=== PATIENT | male | born 1940 | race Caucasian/White ===

== ENCOUNTER 2017-06-23 01:05 | Inpatient (IN) | payer OTHER ==
[~2017-06-23] VITALS: Ht 170.2 cm; Wt 73.0 kg
[~2017-06-23 01:05] MED LIST: BREO ELLIPTA 21 EACH IH; CITALOPRAM HBR20 MG PO; DALIRESP500 MC1 PO; MONTELUKAST SOD10 M1 PO; ST. JOSEPH ASPI81 M1 PO; Z-PAK PO
--- NOTE | 2017-06-23 16:08 | Admission Core Measures ---
Acute Coronary Syndrome (CM) ACS Core Measures Acute Coronary Syndrome Diagnosis No Congestive Heart Failure (NEW) CHF Core Measures Congestive Heart Failure Diagnosis No Cerebrovascular Accident (NEW) CVA Core Measures CVA/TIA Diagnosis No Venous Thromboembolism VTE Core Jed (View Protocol) VTE Risk Factors Surgery No Mechanical VTE Prophylaxis d/t N/A MechProphylax Ordered No VTE Pharm Prophylaxis d/t NA PharmProphylax ordered Problem List As ranked by this Provider includes Assessment & Plan 1. Cancer of transverse colon 2. Colon adenomas HOME MEDS Home Med List Aspirin (Johnson Aspirin) 81 MG TABLET.DR 1 TAB PO DAILY HEARTHEALTH ( Reported) Citalopram Hydrobromide (Citalopram HBr) 20 MG TABLET 1 TAB PO DAILY DEPRESSION (Reported) Fluticasone/Vilanterol (Breo Ellipta 200-25 Mcg INH) 200 MCG-25 MCG/DOSE BLST.W.DEV 1 INH IH DAILY COPD (Reported) Montelukast Sodium 10 MG TABLET 1 TAB PO DAILY ALLERGIES (Reported) Roflumilast (Daliresp) 500 MCG TABLET 1 TAB PO DAILY COPD (Reported) [Z-SANDRA] 250 MG PO DAILY NASAL STUFFINESS (Reported)
--- NOTE | 2017-06-23 16:46 | Operative Report ---
Operative/Inv Procedure Report Surgery Date: 06/23/17 Name of Procedure: 1. Laparoscopic subtotal colectomy with ileo-to sigmoid colon anastomosis 2. Laparoscopic splenic flexure mobilization Pre-Operative Diagnosis: 1. Malignant polyp proximal transverse colon 2. Malignant polyp distal transverse colon 3. Polyposis syndrome undefined Post-Operative Diagnosis: Same Estimated Blood Loss: less than 50ml Surgeon/Research And Development Tester: Eric Pete Jr., DO Anesthesia: general endotracheal tube, block Monitors: Per routine Drains: None Specimens: 1. Umbilical hernia sac 2. Subtotal colon 3. Revised ileocolonic anastomosis Complications: None Condition: Good Operative Indication: This is a 77-year-old gentleman who has an extensive history of colon adenomas, with multiple lesions on multiple previous colonoscopies During his most recent colonoscopy 11 adenomas in total were removed including one at the proximal transverse colon and one at the distal transverse colon with at least intramucosal adenocarcinoma Additionally there was a polyp in the proximal descending colon with high-grade dysplasia. The patient was referred to ms for surgical consultation. 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 Operative/Procedure Note Note: On the day before his surgery the patient did a towel prep at home including oral antibiotics and oral laxatives. On the morning of his surgery he drinks 12 ounces of apple juice prior to coming to the hospital. In the holding area the patient was given oral alvimopan. He received IV antibiotics prior to induction of general anesthesia. He received subcutaneous heparin prior to incision He was taken to the operating room placed in the supine position on the operating room table. He underwent induction of general anesthesia placement of endotracheal tube and Han catheter. He had bilateral tap blocks performed by the anesthesia department. Next he was converted to lithotomy position in Fredrick stirrups and both arms were tucked. The abdomen and perineum were prepped and draped in usual fashion. We gained access to the abdominal cavity using a Fang technique. Fang port was placed in the supraumbilical position through a small no hernia. The abdomen was insufflated to 15 mmHg and all the 5 mm ports were placed under direct visualization of the laparoscope. Ports included: Right upper quadrant, right lower quadrant, left lower quadrant, left upper quadrant and suprapubic. At this point laparoscopic exploration of the abdominal cavity was performed. The liver appeared normal and no evidence of pathology was visible. I began the operation by resecting the right colon. The colon was grasped and elevated towards the anterior abdominal wall. This causes tenting the mesentery and the ileocolic vessels were visible. A window was made along the inferior edge of the ileocolic vessels blunt dissection was carried out and the duodenum was identified and mobilized medially. The ileocolic pedicle was skeletonized and then the vessels were individually ligated with the LigaSure device. I continued my medial to lateral dissection freeing the nasal colon from the retroperitoneal doctors until I reached the lateral sidewall and also the lesser sac superiorly. I divided the proximal transverse colon mesentery with the vessel sealer including the right colic and middle colic vessels. The colon was pulled medially and the white line of Toldt was taken down turning of the cecum and working antegrade. I took down the hepatic flexure and part of the gastrocolic ligament next a transverse colon was pulled down. Made a window in the gastrocolic ligament and divided the gastrocolic ligament starting to the left of midline and working retrograde until almost planes of dissection were confluent. Next I changed sided focus on the left colon. I continued to divide the gastrocolic ligament working antegrade and completely took down the splenic flexure. I continued to divide the transverse colon mesentery until I reached the descending colon and the left colic artery was identified and ligated with vessel sealer. I took down the white line of Toldt starting at the distal sigmoid and working retrograde until once again all my planes of dissection were confluent. At this point I felt I could extract enough specimen to do a extracorporal terminal ileum to sigmoid colon anastomosis. The 12 mm umbilical port was extended to 5 centimeters. I was able to easily extract the terminal ileum and the entire colon to the level of the sigmoid colon. I chose my proximal site of transection on the terminal ileum. The mesentery was divided here with the vessel sealer. A HYUN 80 mm blue load stapler was used to divide the bowel. I chose my distal site of transection on the upper sigmoid colon. Mesentery was cleared here with a vessel sealer. HYUN 80 mm stapler blue load was used to divide the bowel. The specimen was removed from the field and labeled subtotal colon. The 2 transected ends of the bowel were aligned in a [id number] HYUN anastomosis was performed. As I was reducing the bowel back into the abdominal cavity realized that there was no twisting of the mesentery and an internal hernia had formed so I decided to revise the anastomosis. I cleared the mesentery on both the terminal ileal side of the anastomosis and the colon side of the anastomosis. The HYUN stapler was used to divide the bowel on either side of the anastomosis and the anastomosis was sent as separate specimen. Once again I carefully checked the mesentery to make sure there was no twisting. I aligned the 2 sides of the bowel. 2 enterotomies were intentionally created in each side of the bowel. A HYUN stapler was used for the anastomosis. One arm of the stapling device was placed on each limb of the bowel. The stapler was closed making sure to approximate the antimesenteric portions of the bowel. The stapler was fired. The stapler was opened and removed. I inspected the lumen which was found and not bleeding. The common enterotomy edges were then approximated with Allis clamps. A TA 60 blue load stapler was used to close the enterotomy and a ring of excess tissue was excised. The anastomosis was reduced back into the abdominal cavity. The fascia at the midline incision was closed with running 0 PDS suture. The abdomen was reinsufflated to 15 mmHg inspected the abdominal cavity. There was no twisting of the mesentery. There was no internal hernia. A small amount of old residual blood was irrigated and aspirated away from either of the lateral gutters. The 5 mm ports were all removed under direct visualization of the bladder scope. The subcutaneous tissue at the midline incision was copiously irrigated with sterile saline and then closed with nylon suture in a mattress fashion. The 5 mm ports were closed subcuticular 4-0 Monocryl and then skin glue. The abdomen was cleansed and dried. A small island dressing was applied over the extraction incision. At this point the procedure was concluded. The patient was exiting operating room tolerated the procedure well was taken to recovery in good condition. At the end this operational needle sponges and Schmidts were accounted for. Findings: Subtotal colectomy with ileosigmoid colon anastomosis Discharge Disposition: Same Day Admissions CC: Ashley Hernandez MD
[2017-06-23 18:02] VITALS: BP 130/68
--- NOTE | 2017-06-23 20:20 | PN- General Surgery ---
Subjective Subjective: POSTOP CHECK denies abdominal pain, does have some lower back discomfort. no n/v. shruthi sips water. no flatus, no bm. no cp/sob. +uo via griffin. no oob postop Objective Vital Signs and I&Os Vital Signs Date Time Temp Pulse Resp B/P B/P Pulse O2 O2 Flow FiO2 Mean Ox Delivery Rate 06/23 1802 96.8 85 20 130/68 98 Nasal 4.0L Cannula 06/23 1737 97 Nasal 4.0L Cannula Physical Exam: gen-nad card-s1s2 rrr pulm-ctab abd- softly distended, ttp throughout, port sites cdi w glue, midline w scant serosang staining on dressing, quiet bs ext-calves soft nt bl Assessment/Plan Assessment/Plan POD0 SP lap subtotal colectomy for colon ca, stable, with minimal postop pain, awaiting return of bowel fxn P- prn pain meds clear liquid diet entereg until BM cont ivf until shruthi clrs alps, oob, hep sq tomorrow am labs titrate o2 ancef/flagyl [id number] postop i&os dc planning Core Measures Venous Thromboembolism VTE Risk Factors Surgery No Mechanical VTE Prophylaxis d/t N/A MechProphylax Ordered No VTE Pharm Prophylaxis d/t NA PharmProphylax ordered
[2017-06-23 22:37] VITALS: BP 140/80
[2017-06-24 02:00] VITALS: BP 124/74
[2017-06-24 06:11] VITALS: BP 130/78
--- NOTE | 2017-06-24 08:23 | PN- General Surgery ---
See Addendum Subjective Subjective: comfortable. tolerating clears. no flatus, no bm. pain is controlled, needed morphine this am. no fever or illness, in good spirits. Objective Vital Signs and I&Os Vital Signs Date Time Temp Pulse Resp B/P B/P Pulse O2 O2 Flow FiO2 Mean Ox Delivery Rate 06/24 0611 97.9 68 20 130/78 96 Room Air 06/24 0200 97.7 59 20 124/74 98 Nasal 1.0L Cannula 06/24 0000 100 Nasal 1.0L Cannula 06/23 2237 97.9 78 20 140/80 100 06/23 2047 Nasal 2.0L Cannula 06/23 1802 96.8 85 20 130/68 98 Nasal 4.0L Cannula 06/23 1737 97 Nasal 4.0L Cannula Intake & Output 06/24 1600 06/24 0800 06/24 0000 06/23 1600 06/23 0800 06/23 0000 Intake Total 1010 420 Output Total 800 400 Balance 210 20 Intake, IV 650 300 Intake, Oral 360 120 Output, Urine 800 400 Patient 162 lb Weight Weight Reported by Patient Measurement Method Physical Exam: wdwn, aox3, nad heent-wnl heart-rrr lungs- no resp distress, cta b. abd- minimal incisional tenderness and epigastric tenderness. scant dry drainage on dressing. faint hypoactive bs. Results Last 48 Hours of Labs: Laboratory Tests 06/24 0725 Chemistry Sodium Pending Potassium Pending Chloride Pending Carbon Dioxide Pending Anion Gap Pending BUN Pending Creatinine Pending BUN/Creatinine Ratio Pending Hematology CBC w Diff Pending WBC Pending RBC Pending Hgb Pending Hct Pending MCV Pending MCH Pending RDW Pending Plt Count Pending MPV Pending PUBS MCHC Pending Assessment/Plan Assessment/Plan POD1 SP lap subtotal colectomy for colon ca, stable, awaiting return of bowel fxn P- prn pain meds cont clear liquid diet entereg until BM dc ivf alps, hep sq for dvt ppx OOB transition to po pain meds follow am labs perioperative abx i&os Core Measures Venous Thromboembolism VTE Risk Factors Surgery No Mechanical VTE Prophylaxis d/t N/A MechProphylax Ordered No VTE Pharm Prophylaxis d/t NA PharmProphylax ordered
[2017-06-24 08:34] LABS: ABSOLUTE BASOPHIL COUNT 0 /CUMM (0.0-0.2); ABSOLUTE EOSINOPHIL COUNT 0 /CUMM (0.0-0.7); ABSOLUTE GRANULOCYTE CT 15.6 /CUMM (1.4-6.5); ABSOLUTE LYMPH COUNT 0.7 /CUMM (1.2-3.4); ABSOLUTE MONOCYTE COUNT 1.2 /CUMM (0.10-0.60); BASOPHIL % 0 % (0.0-2.0); EOSINOPHIL % 0 % (0-5); HEMATOCRIT 34.3 % (42-52); MEAN CORPUSCULAR HGB 28.6 PG (27.0-31.0); MEAN CORPUSCULAR HGB CONC 33.4 G/DL (33.0-37.0); MEAN CORPUSCULAR VOLUME 85.7 FL (80.0-94.0); MEAN PLATELET VOLUME 7.6 FL (7.4-10.4); PLATELET COUNT 275 /CUMM (130-400); RED BLOOD CELL CT 4.01 /CUMM (4.70-6.10); WHITE BLOOD CELL COUNT 17.5 /CUMM (4.8-10.8)
[2017-06-24 09:11] LABS: GRANULOCYTE % 89.1 % (42.2-75.2)
[2017-06-24 14:26] VITALS: BP 130/80
[2017-06-24 22:34] VITALS: BP 142/80
[2017-06-25 06:21] VITALS: BP 120/70
--- NOTE | 2017-06-25 07:22 | PN- General Surgery ---
See Addendum Subjective Subjective: pod#2 s/p lap assist ileo sigmoid subtotal colectomy no major issues overnight denies cp, sob started clears yesterday, c/o nausea and belching this am states he had two soft bm's yesterday Objective Vital Signs and I&Os Vital Signs Date Time Temp Pulse Resp B/P B/P Pulse O2 O2 Flow FiO2 Mean Ox Delivery Rate 06/25 0621 98.3 92 20 120/70 92 Room Air 06/24 2234 98.5 86 18 142/80 94 Room Air 06/24 1426 98.0 70 18 130/80 97 Room Air 06/24 1200 95 Room Air 06/24 0800 Room Air Intake & Output 06/25 0800 06/25 0000 06/24 1600 06/24 0800 06/24 0000 06/23 1600 Intake Total 727 561 2583 420 Output Total 600 200 800 400 Balance 0 650 210 20 Intake, IV 250 650 300 Intake, Oral 600 600 360 120 Number 2 Bowel Movements Output, Urine 600 200 800 400 Patient 162 lb Weight Weight Reported by Patient Measurement Method Physical Exam: cv: rrr lungs: clear abd: softly distended, +bs, midline wound c/d/i with sutures - drsg changed port sites c/d/i minimal tenderness to palp no [id number] of peritonitis ext: warm, no calf tenderness bilat, distal cms intact Assessment/Plan Assessment/Plan surgical stable plan f/u am labs d/c entereg cont oob ambulate hep sq/alps for dvt prophylaxis cont clrs for now advance diet per attending Core Measures Venous Thromboembolism VTE Risk Factors Surgery No Mechanical VTE Prophylaxis d/t N/A MechProphylax Ordered No VTE Pharm Prophylaxis d/t NA PharmProphylax ordered
[2017-06-25 08:51] LABS: ABSOLUTE BASOPHIL COUNT 0 /CUMM (0.0-0.2); ABSOLUTE EOSINOPHIL COUNT 0 /CUMM (0.0-0.7); ABSOLUTE GRANULOCYTE CT 18.5 /CUMM (1.4-6.5); ABSOLUTE LYMPH COUNT 1.1 /CUMM (1.2-3.4); ABSOLUTE MONOCYTE COUNT 1.3 /CUMM (0.10-0.60); BASOPHIL % 0.1 % (0.0-2.0); EOSINOPHIL % 0 % (0-5); MEAN CORPUSCULAR VOLUME 84.8 FL (80.0-94.0); MEAN PLATELET VOLUME 7.7 FL (7.4-10.4); RBC DISTRIBUTION WIDTH 15.6 % (11.5-14.5); RED BLOOD CELL CT 4.76 /CUMM (4.70-6.10); WHITE BLOOD CELL COUNT 20.9 /CUMM (4.8-10.8)
[2017-06-25 09:22] LABS: HEMATOCRIT 40.4 % (42-52)
[2017-06-25 10:12] LABS: GRANULOCYTE % 88.4 % (42.2-75.2); PLATELET COUNT 395 /CUMM (130-400)
[2017-06-25 10:18] VITALS: BP 122/34
[2017-06-25 15:25] VITALS: BP 118/56; BP 122/90
--- NOTE | 2017-06-25 17:25 | RADIOLOGY REPORT ---
EXAMINATION: ABDOMEN 2 VIEWS CLINICAL INFORMATION: Nausea and vomiting following bowel surgery. COMPARISON: None. TECHNIQUE: Supine and upright views of the abdomen are provided. FINDINGS: Multiple dilated loops of small bowel are present throughout the abdomen. There is no appendicolith. There is wedge-shaped retrocardiac airspace disease. There is medial hip joint space narrowing bilaterally and moderate degenerative change within the lumbar spine. Subcutaneous gas is present within the lateral left abdominal wall. IMPRESSION: Multiple dilated loops of small bowel throughout the abdomen. This is nonspecific, but could correspond to ileus or a distal small bowel obstruction. There is subcutaneous gas present throughout the abdomen consistent with the stated history of recent surgery. Wedge-shaped retrocardiac airspace disease. Consider atelectasis or developing infiltrate. Recommendation is for a followup chest series to be obtained following treatment and/or resolution of symptoms to assure resolution of this appearance.
[2017-06-25 23:02] VITALS: BP 166/90
[2017-06-26 01:54] VITALS: BP 138/80
[2017-06-26 06:20] VITALS: BP 144/86
--- NOTE | 2017-06-26 07:13 | PN- General Surgery ---
See Addendum Subjective Subjective: Overall he is feeling better. Feels as though his abdominal distention is less. He had another bowel movement this morning. Had small amount of emesis overnight, denies any nausea at this time, he is comfortable. Positive flatus Objective Vital Signs and I&Os Vital Signs Date Time Temp Pulse Resp B/P B/P Pulse O2 O2 Flow FiO2 Mean Ox Delivery Rate 06/26 0620 98.1 81 20 144/86 94 Room Air 06/26 0154 98.4 90 18 138/80 93 Room Air 06/26 0000 93 Room Air 06/25 2302 98.6 95 20 166/90 93 Room Air 06/25 1525 98.1 85 18 122/90 95 06/25 1018 97.8 97 18 122/34 95 Room Air Intake & Output 06/26 0800 06/26 0000 06/25 1600 06/25 0800 06/25 0000 06/24 1600 Intake Total 875 625 200 100 600 850 Output Total 600 200 Balance 875 625 200 100 0 650 Intake, IV 875 625 0 250 Intake, Oral 200 100 600 600 Number 0 2 Bowel Movements Output, Urine 600 200 Physical Exam: Well-developed well-nourished no apparent distress. HEENT: Atraumatic, extraocular motion intact Neck: Supple, no lymphadenopathy Respiratory: No respiratory distress Abdomen: Minimally distended and tender in the epigastric and mid abdominal region. Dressing sites clean dry and intact. Positive bowel sounds Extremities: No edema, no calf pain Neuro: Alert and oriented x3 Psych: Mood affect normal, normal memory normal judgment. Skin: Warm and dry, no rash on exposed skin Results Last 48 Hours of Labs: Laboratory Tests 06/25 06/24 0747 0725 Chemistry Sodium (137 - 145 mmol/L) 141 Potassium (3.5 - 5.1 mmol/L) 4.0 Chloride (98 - 107 mmol/L) 106 Carbon Dioxide (22 - 30 mmol/L) 22 Anion Gap (5 - 16) 13 BUN (9 - 20 mg/dL) 14 Creatinine (0.7 - 1.2 mg/dL) 0.9 Estimated GFR (>60 ml/min) > 60 BUN/Creatinine Ratio (7 - 25 %) 15.6 Hematology CBC w Diff NO MAN DIFF REQ NO MAN DIFF REQ WBC (4.8 - 10.8 /CUMM) 20.9 H 17.5 H RBC (4.70 - 6.10 /CUMM) 4.76 4.01 L Hgb (14.0 - 18.0 G/DL) 13.3 L 11.5 L Hct (42 - 52 %) 40.4 L 34.3 L MCV (80.0 - 94.0 FL) 84.8 85.7 MCH (27.0 - 31.0 PG) 28.0 28.6 RDW (11.5 - 14.5 %) 15.6 H 15.0 H Plt Count (130 - 400 /CUMM) 395 275 MPV (7.4 - 10.4 FL) 7.7 7.6 Gran % (42.2 - 75.2 %) 88.4 H 89.1 H Lymphocytes % (20.5 - 51.1 %) 5.2 L 3.9 L Monocytes % (1.7 - 9.3 %) 6.3 7.0 Eosinophils % (0 - 5 %) 0 0 Basophils % (0.0 - 2.0 %) 0.1 0 Absolute Granulocytes (1.4 - 6.5 /CUMM) 18.5 H 15.6 H Absolute Lymphocytes (1.2 - 3.4 /CUMM) 1.1 L 0.7 L Absolute Monocytes (0.10 - 0.60 /CUMM) 1.3 H 1.2 H Absolute Eosinophils (0.0 - 0.7 /CUMM) 0 0 Absolute Basophils (0.0 - 0.2 /CUMM) 0 0 PUBS MCHC (33.0 - 37.0 G/DL) 33.0 33.4 Assessment/Plan Assessment/Plan Postop day #3 status post laparoscopic subtotal colectomy secondary to colon cancer Continue nothing by mouth, possible restart clears later today, will discuss with Eric Pete, DO Continue to monitor bowel function and signs of nausea and vomiting Follow-up am labs, trending white blood cell count Continue IV fluids Continue heparin subcutaneous for DVT prophylaxis oob/ambulate Core Measures Venous Thromboembolism VTE Risk Factors Surgery No Mechanical VTE Prophylaxis d/t N/A MechProphylax Ordered No VTE Pharm Prophylaxis d/t NA PharmProphylax ordered
[2017-06-26 09:23] LABS: ABSOLUTE BASOPHIL COUNT 0 /CUMM (0.0-0.2); ABSOLUTE EOSINOPHIL COUNT 0 /CUMM (0.0-0.7); ABSOLUTE GRANULOCYTE CT 13.5 /CUMM (1.4-6.5); ABSOLUTE LYMPH COUNT 0.9 /CUMM (1.2-3.4); ABSOLUTE MONOCYTE COUNT 1.3 /CUMM (0.10-0.60); BASOPHIL % 0 % (0.0-2.0); EOSINOPHIL % 0.2 % (0-5); MEAN CORPUSCULAR HGB 28.2 PG (27.0-31.0); MEAN CORPUSCULAR HGB CONC 33.3 G/DL (33.0-37.0); MEAN CORPUSCULAR VOLUME 84.6 FL (80.0-94.0); MEAN PLATELET VOLUME 7.7 FL (7.4-10.4); RBC DISTRIBUTION WIDTH 15.4 % (11.5-14.5); RED BLOOD CELL CT 4.04 /CUMM (4.70-6.10); WHITE BLOOD CELL COUNT 15.8 /CUMM (4.8-10.8)
[2017-06-26 10:18] LABS: HEMATOCRIT 34.2 % (42-52)
[2017-06-26 10:19] LABS: GRANULOCYTE % 85.5 % (42.2-75.2); PLATELET COUNT 326 /CUMM (130-400)
[2017-06-26 12:00] VITALS: BP 136/80
[2017-06-26 13:57] VITALS: BP 162/64
[2017-06-26 21:00] VITALS: BP 140/80
[2017-06-27 02:00] VITALS: BP 148/86
[2017-06-27 06:15] VITALS: BP 144/86
--- NOTE | 2017-06-27 07:10 | PN- General Surgery ---
See Addendum Subjective Subjective: Tolerating clears, with some ongoing underlying nausea. No vomiting. Moving stool several times in the last day. Unsure of flatus. Reports significant scrotal bruising / swelling, but voiding without difficulty. Walking "not much", but willing to get up more with rolling walker today. Denies dizziness. No shortness of breath. No chest pains. Taking iv morphine and tylenol for pain control. Objective Vital Signs and I&Os Vital Signs Date Time Temp Pulse Resp B/P B/P Pulse O2 O2 Flow FiO2 Mean Ox Delivery Rate 06/27 0615 98.1 77 20 144/86 95 Room Air 06/27 0200 98.1 63 18 148/86 93 Room Air 06/26 2100 140/80 06/26 1955 98.7 73 20 96 Room Air 06/26 1357 97.7 73 18 162/64 97 Room Air 06/26 1200 98.8 70 14 136/80 95 Intake & Output 06/27 0800 06/27 0000 06/26 1600 06/26 0800 06/26 0000 06/25 1600 Intake Total 1330 1000 875 625 200 Output Total Balance 1330 1000 875 625 200 Intake, IV 850 1000 875 625 Intake, Oral 480 200 Patient 161 lb Weight Physical Exam: General - alert & oriented x 3. comfortable. out of bed to chair. no acute distress. Lungs - clear bilaterally. no w/r/r. Cardiac - s1s2. reg. Abdomen - softly distended. few bs appreciated. dry gauze dressing removed / dry. midline incision approximated with sutures, without erythema or exudates. - scrotum with diffuse echymosis Extremities - warm bilaterally. no c/c/e. calves soft and nontender b/l. Current Medications: Current Medications Sig/Mery Start time Last Medication Dose Route Stop Time Status Admin Acetaminophen 650 MG Q4P PRN 06/24 0830 AC 06/25 PO 0620 Acetaminophen 1,000 MG Q6P PRN 06/23 1815 AC 06/26 IV 1612 Citalopram 20 MG DAILY 06/24 1000 AC 06/26 Hydrobromide PO 0809 Dextrose/Sodium 1,000 ML Q8H 06/25 1815 AC 06/27 Chloride IV 0212 Heparin Sodium 5,000 UNIT Q8 06/24 1400 AC 06/27 (Porcine) SC 0551 Montelukast Sodium 10 MG DAILY 06/24 1000 AC 06/26 PO 0809 Morphine Sulfate 4 MG Q2P PRN 06/23 1815 AC 06/26 IV 1727 Ondansetron HCl 4 MG Q6P PRN 06/23 181 AC 06/25 IV 0736 Oxycodone/ 1 TAB Q4P PRN 06/24 0830 AC 06/27 Acetaminophen PO 0212 Oxycodone/ 2 TAB Q4P PRN 06/24 0830 AC 06/24 Acetaminophen PO 1551 Roflumilast 500 MCG DAILY 06/24 1000 AC 06/26 PO 0809 Simethicone 80 MG Q6P PRN 06/26 2014 AC 06/26 PO 203 Trazodone HCl 100 MG AT BEDTIME NEED.. 06/23 2229 AC 06/23 PO 2333 Results Last 48 Hours of Labs: Laboratory Tests 06/26 06/25 0800 0747 Chemistry Sodium (137 - 145 mmol/L) 144 Potassium (3.5 - 5.1 mmol/L) 3.9 Chloride (98 - 107 mmol/L) 108 H Carbon Dioxide (22 - 30 mmol/L) 26 Anion Gap (5 - 16) 10 BUN (9 - 20 mg/dL) 23 H Creatinine (0.7 - 1.2 mg/dL) 0.9 Estimated GFR (>60 ml/min) > 60 BUN/Creatinine Ratio (7 - 25 %) 25.6 H Phosphorus (2.5 - 4.5 mg/dL) 2.0 L Magnesium (1.6 - 2.3 mg/dL) 1.9 Hematology CBC w Diff NO MAN DIFF REQ NO MAN DIFF REQ WBC (4.8 - 10.8 /CUMM) 15.8 H 20.9 H RBC (4.70 - 6.10 /CUMM) 4.04 L 4.76 Hgb (14.0 - 18.0 G/DL) 11.4 L 13.3 L Hct (42 - 52 %) 34.2 L 40.4 L MCV (80.0 - 94.0 FL) 84.6 84.8 MCH (27.0 - 31.0 PG) 28.2 28.0 RDW (11.5 - 14.5 %) 15.4 H 15.6 H Plt Count (130 - 400 /CUMM) 326 395 MPV (7.4 - 10.4 FL) 7.7 7.7 Gran % (42.2 - 75.2 %) 85.5 H 88.4 H Lymphocytes % (20.5 - 51.1 %) 5.8 L 5.2 L Monocytes % (1.7 - 9.3 %) 8.5 6.3 Eosinophils % (0 - 5 %) 0.2 0 Basophils % (0.0 - 2.0 %) 0 0.1 Absolute Granulocytes (1.4 - 6.5 /CUMM) 13.5 H 18.5 H Absolute Lymphocytes (1.2 - 3.4 /CUMM) 0.9 L 1.1 L Absolute Monocytes (0.10 - 0.60 /CUMM) 1.3 H 1.3 H Absolute Eosinophils (0.0 - 0.7 /CUMM) 0 0 Absolute Basophils (0.0 - 0.2 /CUMM) 0 0 PUBS MCHC (33.0 - 37.0 G/DL) 33.3 33.0 Assessment/Plan Assessment/Plan This 77 year old male with hx copd, depression, seasonal allergies, is POD#4 s/p laparoscopic subtotal colectomy secondary to colon cancer, post-op ileus tolerating clears. decrease iv fluids may consider adding toradol. continue morphine / tylenol prn pain oob/ambulation encouraged hep sc - dvt ppx f/u labs will d/w Core Measures Venous Thromboembolism VTE Risk Factors Surgery No Mechanical VTE Prophylaxis d/t N/A MechProphylax Ordered No VTE Pharm Prophylaxis d/t NA PharmProphylax ordered
[2017-06-27 08:42] LABS: ABSOLUTE BASOPHIL COUNT 0 /CUMM (0.0-0.2); ABSOLUTE EOSINOPHIL COUNT 0.3 /CUMM (0.0-0.7); ABSOLUTE GRANULOCYTE CT 10.5 /CUMM (1.4-6.5); ABSOLUTE MONOCYTE COUNT 1.1 /CUMM (0.10-0.60); BASOPHIL % 0.1 % (0.0-2.0); GRANULOCYTE % 81.8 % (42.2-75.2); HEMATOCRIT 31.9 % (42-52); MEAN CORPUSCULAR HGB 28.4 PG (27.0-31.0); MEAN CORPUSCULAR HGB CONC 33.4 G/DL (33.0-37.0); MEAN PLATELET VOLUME 7.9 FL (7.4-10.4); PLATELET COUNT 279 /CUMM (130-400); RBC DISTRIBUTION WIDTH 15.5 % (11.5-14.5); RED BLOOD CELL CT 3.76 /CUMM (4.70-6.10); WHITE BLOOD CELL COUNT 12.9 /CUMM (4.8-10.8)
[2017-06-27 14:00] VITALS: BP 158/60
--- NOTE | 2017-06-27 14:41 | Surgical Discharge Summary ---
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 Home Who Do You Live With? Spouse Services at Home: None What is Your Primary Language? Syriac Review of Systems: see h&p Hospital Course Course Attending Physician: Eric Pete Jr., DO Primary Care Physician: Israel CLEMENT,[place] [facility] Hospital Course: Electively scheduled laparoscopic subtotal colectomy with ileo-to sigmoid colon anastomosis and splenic flexure mobilization by on 06/23/17 for history of malignant polyp proximal transverse colon, malignant polyp distal transverse colon, and polyposis syndrome undefined. Entereg given post-operatively until bowel function started to return. Pain control transitioned from iv to oral medication. Mild post-op ileus, which resolved after a few days, and diet advancement was done as tolerated. Mild post-operative electrolyte abnormalities , including hypokalemia and hypophosphatemia, repleted with iv replacements. Stable for discharge to home on 06/28/17 once tolerating low residue diet. Complications: None Allergies: Coded Allergies: No Known Allergies (06/20/17) NO KNOWN ALLERGIES PER ANDREW IN [facility] ON 06/20/17 - [facility] Disposition Summary Disposition Principal Diagnosis: 1. Malignant polyp proximal transverse colon 2. Malignant polyp distal transverse colon 3. Polyposis syndrome undefined Additional Diagnosis: same as above, s/p Surgery Date: 06/23/17 Name of Procedure: 1. Laparoscopic subtotal colectomy with ileo-to sigmoid colon anastomosis 2. Laparoscopic splenic flexure mobilization post-op ileus Discharge Disposition: home or self care Discharge Instructions General Discharge Information Code Status: Full Code Patient's Diet: low residue diet Patient's Activity: no heavy lifting >10 lbs, no strenuous activity Follow-Up Instructions/Appts: follow up with one week after discharge will need sutures removed from midline incision around post-op day#14 Medications at Discharge Discharge Medications: Stop taking the following medications: [Z-SANDRA] ORAL DAILY Continue taking these medications: Aspirin ([place] Aspirin) 81 MG TABLET.DR 1 Tablet ORAL DAILY Roflumilast (Daliresp) 500 MCG TABLET 1 Tablet ORAL DAILY Fluticasone/Vilanterol (Breo Ellipta 200-25 Mcg INH) 200 MCG-25 MCG/DOSE BLST.W.DEV 1 Inhalation INHALATION DAILY Montelukast Sodium (Montelukast Sodium) 10 MG TABLET 1 Tablet ORAL DAILY Citalopram Hydrobromide (Citalopram HBr) 20 MG TABLET 1 Tablet ORAL DAILY Start taking the following new medications: Oxycodone HCl/Acetaminophen (Percocet 5-325 MG Tablet) 5 MG-325 MG TABLET 1-2 Tablet ORAL EVERY 4-6 HOURS NEEDED as needed for pain control Qty = 36 No Refills Instructions: tylenol alternatively. do not combine. Copies To: Israel CLEMENT,[place]
--- NOTE | 2017-06-27 14:44 | Patient Discharge Instructions ---
Discharge Instructions General Discharge Information You were seen/treated for: 1. Malignant polyp proximal transverse colon 2. Malignant polyp distal transverse colon 3. Polyposis syndrome undefined You had these procedures: Surgery Date: 06/23/17 Name of Procedure: 1. Laparoscopic subtotal colectomy with ileo-to sigmoid colon anastomosis 2. Laparoscopic splenic flexure mobilization Watch for these problems: fever>101.3, increased pain, redness/swelling/drainage, dizziness, shortness of breath, chest pains Call Surgeon to remove: Stitches No bath, but you may shower: Yes Other wound care: sutures to be removed at follow up appointment, around post-op day #14 Diet Continue normal diet: No Recommended Diet: Regular Activity Full Activity/No Limits: No Activity Self Limited: Yes Pounds, do NOT lift more than: 10 Other activity limits: no heavy lifting. no strenuous activity. Acute Coronary Syndrome Inclusion Criteria At DC or during hospital stay patient has or had the following: ACS DIAGNOSIS No Discharge Core Measures Meds if any: Prescribed or Continued at Discharge Meds if any: NOT Prescribed or Continued at Discharge Congestive Heart Failure Inclusion Criteria At DC or during hospital stay patient has or had the following: CHF DIAGNOSIS No Discharge Core Measures Meds if any: Prescribed or Continued at Discharge Meds if any: NOT Prescribed or Continued at Discharge Cerebrovascular accident Inclusion Criteria At DC or during hospital stay patient has or had the following: CVA/TIA Diagnosis No Discharge Core Measures Meds if any: Prescribed or Continued at Discharge Meds if any: NOT Prescribed or Continued at Discharge Venous thromboembolism Inclusion Criteria VTE Diagnosis No VTE Type NONE VTE Confirmed by (Test) NONE Discharge Core Measures - Per Current guidelines, there needs to be overlap - treatment for the first 5 days of Warfarin therapy. - If discharged on Warfarin prior to 5 days of - overlap therapy, the patient will need to be - assessed for post discharge needs including - *Post discharge parental anticoagulation - *Warfarin and/or parental anticoagulation education - *Follow up date to check INR post discharge At least 5 days overlap therapy as Inpatient No Meds if any: Prescribed or Continued at Discharge Note: Overlap Therapy is Warfarin and Anticoagulant Meds if any: NOT Prescribed or Continued at Discharge
[2017-06-27] MEDS ORDERED: PERCOCET 5-3251 EACH PO (14:45)
[2017-06-27 22:21] VITALS: BP 132/88
[2017-06-28 04:24] VITALS: BP 170/82
[2017-06-28 08:27] LABS: ABSOLUTE BASOPHIL COUNT 0 /CUMM (0.0-0.2); ABSOLUTE EOSINOPHIL COUNT 0.3 /CUMM (0.0-0.7); ABSOLUTE GRANULOCYTE CT 9.7 /CUMM (1.4-6.5); ABSOLUTE LYMPH COUNT 0.8 /CUMM (1.2-3.4); ABSOLUTE MONOCYTE COUNT 0.9 /CUMM (0.10-0.60); BASOPHIL % 0.3 % (0.0-2.0); EOSINOPHIL % 2.3 % (0-5); HEMATOCRIT 31.5 % (42-52); MEAN CORPUSCULAR HGB 28.1 PG (27.0-31.0); MEAN CORPUSCULAR HGB CONC 33.6 G/DL (33.0-37.0); MEAN CORPUSCULAR VOLUME 83.8 FL (80.0-94.0); MEAN PLATELET VOLUME 7.8 FL (7.4-10.4); PLATELET COUNT 293 /CUMM (130-400); RBC DISTRIBUTION WIDTH 15.3 % (11.5-14.5); RED BLOOD CELL CT 3.76 /CUMM (4.70-6.10); WHITE BLOOD CELL COUNT 11.7 /CUMM (4.8-10.8)
[2017-06-28 09:29] LABS: GRANULOCYTE % 83.1 % (42.2-75.2)
--- NOTE | 2017-06-28 10:38 | PN- Student ---
See Addendum [facility] 06/28/17 1029: Subjective Subjective: Mukesh is a 77yo caucasain male with a history of colon cancer, post op day 5 s/ p laparoscopic subtotal colectomy. Patient states he has mild discomfort at his incision site, but it is tolerable. Pt had mild case of ileus which seems to have resolved and admits to passing flatus and having regular BMs. Pt is complaining of continued scrotal swelling since the procedure. He states his scrotum is slightly enlarged but is non painful. He has not experienced this in the past. Yesterday his scrotum was elevated on folded towels and he states it did not change the amount of swelling. He does not seem to be very concerned about this issue. Patient would like to be discharged Friday06/30/17. Denies: H/A, vision changes, SOB, chest pain, N/V/D, dysuria/hematuria, muscle pain, paresthesias or syncope. Objective Objective: GENERAL: PT sitting upright comfortably in bed in NAD. A+Ox4, pleasant affect. RESP: Good respiratory effort, CTAB. CARDIO: RRR, no MRG, S1 and S2 audidble ABD: Soft, nondistended. Slightly tender with palpation. Vertical incision closed with loree noted at midline- mild bruising surrounds the incision site, but there are no signs of irritation or infection. : Scrotum is soft, slightly enlarged (but not distended). Non erythematous, nonpainful to palpation, no masses palpated. Testes are of normal size and texture. Penis is unaffected, no urethral discharge noted. Elevated on folded towels. MUSC: 5/5 strength, full ROM noted throughout. Compression devices in place on lower extremities bilaterally. Nontender, nonedematous. Pulses +2 throughout. NEURO: Sensation intact throughout. Results Results: Laboratory Tests 06/28/17 0705: Anion Gap 12, Estimated GFR > 60, BUN/Creatinine Ratio 18.6, Phosphorus 3.0, CBC w Diff NO MAN DIFF REQ, RBC 3.76 L, MCV 83.8, MCH 28.1, RDW 15.3 H, MPV 7.8, Gran % 83.1 H, Lymphocytes % 6.5 L, Monocytes % 7.8, Eosinophils % 2.3, Basophils % 0.3, Absolute Granulocytes 9.7 H, Absolute Lymphocytes 0.8 L, Absolute Monocytes 0.9 H, Absolute Eosinophils 0.3, Absolute Basophils 0, PUBS MCHC 33.6 06/27/17 0744: Anion Gap 11, Estimated GFR > 60, BUN/Creatinine Ratio 18.6, Phosphorus 2.2 L, Magnesium 1.8, CBC w Diff NO MAN DIFF REQ, RBC 3.76 L, MCV 85.0, MCH 28.4, RDW 15.5 H, MPV 7.9, Gran % 81.8 H, Lymphocytes % 7.7 L, Monocytes % 8.4, Eosinophils % 2.0, Basophils % 0.1, Absolute Granulocytes 10.5 H, Absolute Lymphocytes 1.0 L, Absolute Monocytes 1.1 H, Absolute Eosinophils 0.3, Absolute Basophils 0, PUBS MCHC 33.4 06/26/17 0800: Anion Gap 10, Estimated GFR > 60, BUN/Creatinine Ratio 25.6 H, Phosphorus 2.0 L, Magnesium 1.9, CBC w Diff NO MAN DIFF REQ, RBC 4.04 L, MCV 84.6, MCH 28.2, RDW 15.4 H, MPV 7.7, Gran % 85.5 H, Lymphocytes % 5.8 L, Monocytes % 8.5, Eosinophils % 0.2, Basophils % 0, Absolute Granulocytes 13.5 H, Absolute Lymphocytes 0.9 L, Absolute Monocytes 1.3 H, Absolute Eosinophils 0, Absolute Basophils 0, PUBS MCHC 33.3 Assessment/Plan Assessment: Mukesh is a 77yo M with PMHX significant for known colon CA. POD5 s/p lap subtotal colectomy. Patient appears to be recovering well despite mild ileus. He is tolerating diet well and is having regular BMs. His WBC is trending downward. Patient is mildly hyperchloremic (110) today but is asymptomatic. He would like to be discharged home on Friday06/30/17. Patient has no complaints or concerns at this time. Plan: Advance diet to regular (low fiber) diet. Encourage increased PO water intake for hyperchloremia. Continue to elevate scrotum on folded towels - Pt has been informed if this begins to cause discomfort or begins to increase in size, staff should be notified immediately. Continue heparin SC for DVT prophylaxis Encourage ambulation with assistance. Continue pain medications as ordered (PO) [place] PA,Isabel 06/28/17 1057: Subjective Subjective: feeling ok overall, +oob, no n/v, shruthi diet. +flatus, +bm. c/o some adbominal soreness, nonpainful scrotal swelling Objective Results Results: Laboratory Tests 06/28/17 0705: Anion Gap 12, Estimated GFR > 60, BUN/Creatinine Ratio 18.6, Phosphorus 3.0, CBC w Diff NO MAN DIFF REQ, RBC 3.76 L, MCV 83.8, MCH 28.1, RDW 15.3 H, MPV 7.8, Gran % 83.1 H, Lymphocytes % 6.5 L, Monocytes % 7.8, Eosinophils % 2.3, Basophils % 0.3, Absolute Granulocytes 9.7 H, Absolute Lymphocytes 0.8 L, Absolute Monocytes 0.9 H, Absolute Eosinophils 0.3, Absolute Basophils 0, PUBS MCHC 33.6 06/27/17 0744: Anion Gap 11, Estimated GFR > 60, BUN/Creatinine Ratio 18.6, Phosphorus 2.2 L, Magnesium 1.8, CBC w Diff NO MAN DIFF REQ, RBC 3.76 L, MCV 85.0, MCH 28.4, RDW 15.5 H, MPV 7.9, Gran % 81.8 H, Lymphocytes % 7.7 L, Monocytes % 8.4, Eosinophils % 2.0, Basophils % 0.1, Absolute Granulocytes 10.5 H, Absolute Lymphocytes 1.0 L, Absolute Monocytes 1.1 H, Absolute Eosinophils 0.3, Absolute Basophils 0, PUBS MCHC 33.4 06/26/17 0800: Anion Gap 10, Estimated GFR > 60, BUN/Creatinine Ratio 25.6 H, Phosphorus 2.0 L, Magnesium 1.9, CBC w Diff NO MAN DIFF REQ, RBC 4.04 L, MCV 84.6, MCH 28.2, RDW 15.4 H, MPV 7.7, Gran % 85.5 H, Lymphocytes % 5.8 L, Monocytes % 8.5, Eosinophils % 0.2, Basophils % 0, Absolute Granulocytes 13.5 H, Absolute Lymphocytes 0.9 L, Absolute Monocytes 1.3 H, Absolute Eosinophils 0, Absolute Basophils 0, PUBS MCHC 33.3 Assessment/Plan Plan: agree w above. feeling well, some abd soreness, moving his bowels. -advance to reg diet -elevate scrotum -prn pain meds - oob, dvt ppx, alps -will dw attending
[2017-06-28 10:39] VITALS: BP 142/70
[2017-06-28 13:50] VITALS: BP 160/80
[2017-06-28 15:37] VITALS: BP 136/80
[2017-06-28 22:14] VITALS: BP 140/80
[2017-06-29 07:22] VITALS: BP 104/70
--- NOTE | 2017-06-29 08:27 | PN- General Surgery ---
Subjective Subjective: POD#6 S/P LAP ASSIST SUBTOTAL COLECTOMY DOING WELL THIS AM NO MAJOR ISSUES OVERNIGHT NO COMPLAINTS NOW TOLERATINGREG DIET +BM Objective Vital Signs and I&Os Vital Signs Date Time Temp Pulse Resp B/P B/P Pulse O2 O2 Flow FiO2 Mean Ox Delivery Rate 06/29 0722 97.6 72 20 104/70 96 Room Air 06/28 2214 98.6 75 18 140/80 95 06/28 1537 136/80 06/28 1350 97.5 68 20 160/80 97 Room Air 06/28 1039 98.6 70 18 142/70 97 Room Air Intake & Output 06/29 1600 06/29 0800 06/29 0000 06/28 1600 06/28 0800 06/28 0000 Intake Total 250 250 490 490 Output Total Balance 250 250 490 490 Intake, IV 10 10 10 250 Intake, Oral 240 240 480 240 Physical Exam: CV: RRR LUNGS: CLEAR ABD: SOFT WOUNDS C/D/I NO GUARDING TO PALP EXT: WARM, NO CALF TENDERNESS TO PALP Assessment/Plan Assessment/Plan SURGICAL STABLE PLAN HOME D/C LATER TODAY Core Measures Venous Thromboembolism VTE Risk Factors Surgery No Mechanical VTE Prophylaxis d/t N/A MechProphylax Ordered No VTE Pharm Prophylaxis d/t NA PharmProphylax ordered
[2017-06-29] MEDS ORDERED: PERCOCET 5-3251 EACH PO (08:39)
== END 2017-06-29 12:43 | DRG 330 ==
LOC: 2NA 01:05 → SDA 01:05 → ENRESERV 16:34 → ENTRNSPT 17:25 → EDTRNSPTSTS 17:29 → 2NA 17:38 → CMPTRNSPT 17:44 → ENPENDDIS 06-29 08:46 → ENTRNSPT 06-29 12:25 → EDTRNSPTSTS 06-29 12:33 → EDTRNSPT 06-29 12:33 → 2NA 06-29 12:43 → CMPTRNSPT 06-29 13:30
PROVIDERS: Nurse Practitioner; Physician Assistant; Physician Assistant Surgical
PROC: 0DBL4ZZ Excision of Transverse Colon, Percutaneous Endoscopic Approach (ICD-10-PCS; principal; 2017-06-23)
PROC: 0DNL4ZZ Release Transverse Colon, Percutaneous Endoscopic Approach (ICD-10-PCS; 2017-06-23)
DX: C18.4 Malignant neoplasm of transverse colon (principal); K91.30 Postprocedural intestinal obstruction, unspecified as to partial versus complete; E83.39 Other disorders of phosphorus metabolism; E87.8 Other disorders of electrolyte and fluid balance, not elsewhere classified; J44.9 Chronic obstructive pulmonary disease, unspecified; E87.6 Hypokalemia; K21.9 Gastro-esophageal reflux disease without esophagitis; K63.5 Polyp of colon; K42.9 Umbilical hernia without obstruction or gangrene; F32.9 Major depressive disorder, single episode, unspecified; J30.2 Other seasonal allergic rhinitis
CPT/HCPCS: 2NASP; 36415; 74021; 82436; 87086; C9399; J0131; J0690; J1644; J2405; J7042

== ENCOUNTER 2017-07-01 11:50 | Inpatient (IN) | payer OTHER ==
[~2017-07-01] VITALS: Ht 170.2 cm; Wt 74.3 kg
[~2017-07-01 11:50] MED LIST changes: +PERCOCET 5-3251 EACH PO
--- NOTE | 2017-07-01 12:13 | ED GENERAL ADULT ---
History of Present Illness General Chief Complaint: General Adult Stated Complaint: DIRRHEA Source: patient Exam Limitations: no limitations Allergies Coded Allergies: No Known Allergies (06/20/17) NO KNOWN ALLERGIES PER ANDREW IN SDS ON 06/20/17 - SJS Reconcile Medications Aspirin (Irene Aspirin) 81 MG TABLET.DR 1 TAB PO DAILY HEARTHEALTH ( Reported) Citalopram Hydrobromide (Citalopram HBr) 20 MG TABLET 1 TAB PO DAILY DEPRESSION (Reported) Fluticasone/Vilanterol (Breo Ellipta 200-25 Mcg INH) 200 MCG-25 MCG/DOSE BLST.W.DEV 1 INH IH DAILY COPD (Reported) Montelukast Sodium 10 MG TABLET 1 TAB PO DAILY ALLERGIES (Reported) Oxycodone HCl/Acetaminophen (Percocet 5-325 MG Tablet) 5 MG-325 MG TABLET 1-2 TAB PO Q4-6 PRN PRN pain control .tylenol alternatively. do not combine. Roflumilast (Daliresp) 500 MCG TABLET 1 TAB PO DAILY COPD (Reported) Triage Note: 77 Y/O MALE FROM HOME VIA EMR STRETCHER WITH COMPLAINTS OF WEAKNESS, FALLS X 4. S/P COLON RESECTION AND UMBILICAL HERNIA REPAIR 06/23/2017. INTAKE FOOD AND FLUIDS VERY POOR. Triage Nurses Notes Reviewed? yes Onset: Gradual Duration: day(s): (2) Timing: no prior history Injury Environment: home Severity: moderate, severe Severity Numbers: 8 Modifying Factors: Improves With: immobilization. Worsens With: movement. HPI: Patient is a 77-year-old male with a recent history of colon cancer, recent surgery of partial colectomy, discharge from hospital 2 days ago presenting to the emergency department with family chief complaint of generalized malaise, weakness anything for the past 2 days. Denies any fevers or chills. No nausea or vomiting. Positive diarrhea has been going on for the past 3-4 days. Patient was seen by his surgeon in the hospital postoperatively but has not followed up with an outpatient. Family reports that his legs are so weak that he tries to get up to the bathroom and then his legs give out and he falls. No head injury with any of the falls. Denies loss of consciousness. Denies any chest pain palpitations or shortness of breath. Denies any congestion or cough. Family also reports that he has been "woozy" for the past day or 2. (Elida Mary) Vital Signs & Intake/Output Vital Signs & Intake/Output Vital Signs Date Time Temp Pulse Resp B/P B/P Pulse O2 O2 Flow FiO2 Mean Ox Delivery Rate 07/01 1720 98.9 93 20 123/70 96 Room Air 07/01 1506 90 120/70 07/01 1206 97 07/01 1203 98.1 98 18 134/76 97 Room Air (Fern CLEMENT,Robin Coronel) Past History Travel History Traveled to [place] past 21 day No Medical History Any Pertinent Medical History? see below for history Neurological: NONE EENT: NONE Cardiovascular: NONE Respiratory: NONE Gastrointestinal: GERD, 3/4 COLON REMOVED UMBILICAL HERNIA REPAIR Hepatic: NONE Renal: KIDNEY STONES Musculoskeletal: NONE Psychiatric: NONE Endocrine: NONE Blood Disorders: NONE Cancer(s): colon/rectal cancer SET UP INSPECTOR/Reproductive: NONE History of MRSA: No History of VRE: No History of CDIFF: No Influenza Vaccine: 02/21/17 Surgical History Surgical History: colon resection Psychosocial History Who do you live with Spouse Services at Home None What is your primary language Romanian Tobacco Use: Quit <30 days ago ETOH Use: denies use Family History Hx Contributory? No (Elida Mary) Review of Systems Review of Systems Constitutional: Reports: malaise, weakness. Comments Review of systems: See HPI, All other systems negative. Constitutional, no chills fever or weight loss HEENT: No visual changes no sore throat no congestion Cardiovascular: No chest pain ,palpitation , orthopnea or ankle swelling Skin, no jaundice no rashes Respiratory: No dyspnea cough sputum or hemoptysis GI: No nausea no vomiting : No dysuria No hematuria Muscle skeletal: no back pain, no neck pain, Neurologic: No numbness no confusion, no headaches Psych: No stress anxiety or depression,. Heme/endocrine: No bruising no bleeding no polyuria or polydipsia Immunology: No splenectomy or history of AIDS (Elida Mary) Physical Exam Physical Exam General Appearance: no apparent distress, awake, comfortable, thin Comments: THIN person in no acute distress HEENT: extraocular motion intact, no nystagmus. Pupils equally round and reactive to light and accommodation. Nose is atraumatic. External auditory canal and Tympanic membranes clear. Pharynx normal. No swelling or edema. Very dry oral mucosa, dry cracked lips. Neck: Supple, no lymphadenopathy Back: Nontender Cardiovascular: Regular rate and rhythms no murmurs rubs or gallops, normal JVP Respiratory: Chest nontender. No respiratory distress.breath sounds diminished to auscultation bilaterally Abdomen: Soft, nontender, minimally distended, no appreciable organomegaly. Normal hypoactive bowel sounds. No ascites, no rebound or guarding. Surgical incisions are well-appearing, no surrounding erythema or edema. There is small amount of ecchymosis along the midline incision just below the umbilicus. Sutures are intact. Extremity: No edema, no calf tenderness to palpation, normal and equal pulses. Muscular strength is 2 out of 5 in the upper and lower extremities was seated on the stretcher. Field Cashier strength is equal and symmetric bilaterally. Neuro: Alert oriented x3, motor sensory normal, cranial nerves II through XII grossly intact. Skin: Ecchymotic area over the left flank approximately 20 cm x 10 cm in size, mildly tender to palpation. Psych: Mood and affect is normal, memory and judgment is normal. Core Measures ACS in differential dx? Yes CVA/TIA Diagnosis: No Sepsis Present: No Sepsis Focused Exam Completed? No (Leeann HUMPHRIES,Elida) Progress Differential Diagnoses I considered the following diagnoses in my evaluation of the patient: Intra- abdominal infection, retroperitoneal bleed, UTI, pneumonia, anemia, dehydration, electrolyte abnormality, acute kidney injury, ACS, SBO, deconditioning Diagnostic Imaging: Viewed by Me: Radiology Read. Discussed w/RAD: Radiology Read. Radiology Impression: PATIENT: MUKESH TRAVIS PRESENT AGE: 77 PATIENT ACCOUNT NO: [id number] : 40 LOCATION: [facility] ORDERING PHYSICIAN: Elida HUMPHRIES SERVICE DATE: 07/01/17 EXAM TYPE: RAD - XRY-PORTABLE CHEST XRAY EXAMINATION: XR PORTABLE CHEST CLINICAL INFORMATION: Recent admission. Weakness. COMPARISON: Abdominal radiographs from 06/25/2017 TECHNIQUE: Portable frontal view of the chest was obtained. FINDINGS: The thoracic aorta is tortuous with calcification at the knob. The heart size is within normal limits. There is mild patchy opacity in the right base, new from prior. There is minor platelike opacity in the retrocardiac left lower lobe. Otherwise the lungs appear clear. No evidence of pulmonary edema, pleural effusion, or pneumothorax. There is a nonspecific bowel gas pattern with air- filled loops of bowel seen in the upper abdomen. The spine is not well visualized due to technique. The bones appear demineralized. No acute osseous abnormalities are noted. IMPRESSION: There is a small area of patchy opacity in the right base, which may reflect a developing consolidation and was not visualized on the recent prior study. DICTATED BY: Mehran Horan MD DATE/TIME DICTATED:07/01/171317 SECURITY INSTALLATION SALES TECHNICIAN:MOHIT DATE/TIME TRANSCRIBED:1317 CONFIDENTIAL, DO NOT COPY WITHOUT APPROPRIATE AUTHORIZATION. < Electronically signed in Other Vendor System> SIGNED BY: Mehran Horan MD 07/01/17 1323 Initial ED EKG: SINUS TACHY, RIGHT BUNDLE BRANCH BLOCK Comments: SPOKE WITH DR PETE- WILL ADMIT PT FOR SBO, DEHYDRATION,IV FLUIDS. FAMILY UPDATED. (Leeann HUMPHRIES,Elida) Plan of Care: Orders Procedure Date/time Status Nothing by Mouth 07/02 B Active Misc Message 07/01 1704 Active ED Holding Orders 07/01 1704 Active Admit to inpatient 07/01 1704 Active Vital Signs 07/01 1704 Active Code Status 07/01 1704 Active Add-on Test (ER Only) 07/01 1504 Active BLOOD CULTURE 07/01 1336 Active MISTAKE 07/01 1255 Active RAPID VIRAL INFLUENZA A 07/01 1243 Complete LACTIC ACID 07/01 1241 Complete TYPE & SCREEN (NOT X-MATCH) 07/01 1241 Complete Telemetry/Oil Filters Inspector 07/01 1240 Active C.DIFFICILE 07/01 1240 Active URINALYSIS 07/01 1240 Complete TROPONIN LEVEL 07/01 1240 Complete PARTIAL THROMBOPLASTIN TIME 07/01 1240 Complete PROTHROMBIN TIME 07/01 1240 Complete MONOSPOT TEST 07/01 1240 Complete COMPREHENSIVE METABOLIC PANEL 07/01 1240 Complete CBC WITHOUT DIFFERENTIAL 07/01 1240 Complete EKG 07/01 1232 Active Current Medications Sig/Mery Start time Last Medication Dose Stop Time Status Admin Sodium Chloride 1,000 ML ONCE ONE 07/01 1715 AC 07/01 (Normal Saline 0.9%) 07/01 2354 1730 Laboratory Tests 07/01/17 1541: Lactic Acid Cancelled 07/01/17 1507: Urine Color JES, Urine Clarity HAZY H, Urine pH 6.0, Ur Specific Hendrix >= 1.030, Urine Protein 30 H, Urine Ketones 40 H, Urine Nitrite POS H, Urine Bilirubin POS@ICTO H, Urine Urobilinogen 0.2, Ur Leukocyte Esterase NEG, Ur Microscopic SEDIMENT EXAMINED, Urine RBC 1-3, Urine WBC RARE, Ur Epithelial Cells FEW, Urine Bacteria FEW H, Hyaline Casts 1-3 H, Granular Casts RARE H, Urine Mucus MOD H, Urine Hemoglobin TRACE-INTACT H, Urine Glucose NEG 07/01/17 1325: Lactic Acid 1.1 07/01/17 1325: Anion Gap 17 H, Estimated GFR > 60, BUN/Creatinine Ratio 18.9, Glucose 75, Calcium 9.0, Total Bilirubin 1.9 H, AST 65 H, ALT 84 H, Alkaline Phosphatase 110, Troponin I 0.04, Total Protein 5.9 L, Albumin 3.4 L, Globulin 2.5, Albumin/Globulin Ratio 1.4, PT 17.5 H, INR 1.68 H, APTT 28, CBC w Diff MAN DIFF ORDERED, RBC 4.45 L, MCV 84.4, MCH 27.8, RDW 14.9 H, MPV 7.9, Gran % 88.4 H, Lymphocytes % 3.5 L, Monocytes % 8.1, Eosinophils % 0, Basophils % 0, Absolute Granulocytes 11.1 H, Segmented Neutrophils 74, Band Neutrophils 15 H, Absolute Lymphocytes 0.4 L, Lymphocytes 6 L, Monocytes 5, Absolute Monocytes 1.0 H, Absolute Eosinophils 0, Absolute Basophils 0, Platelet Estimate VERIFIED BY SMEAR, Poikilocytosis 1+, Anisocytosis 1+, Ovalocytes 1+, [place] Cells 1+, PUBS MCHC 33.0 07/01/17 1240: Infectious [place] Titer NEGATIVE Microbiology 07/01 1400 BLOOD: Blood Culture - RECD 07/01 1336 BLOOD: Blood Culture - ORD 07/01 1325 NASOPHARYN: Influenza Virus A & B Rapid Smear - COMP 07/01 1240 STOOL: Clostridium difficile Toxin A & B - ORD Comments: 07/01/2017 3:32:18 PM Mukesh is comfortable at this time and has no specific complaint other than feeling thirsty. I have asked that he remain nothing by mouth pending discussion with Dr. Pete. (Fern CLEMENT,Robin Coronel) Departure Departure Time of Disposition: 1651 Disposition: STILL A PATIENT Condition: Stable Clinical Impression Primary Impression: Small bowel obstruction Secondary Impressions: Dehydration, Weakness Referrals: Israel CLEMENT,[place] (PCP/Family) Departure Forms: Customer Survey General Discharge Information Admission Note Spoke With: Eric Pete Jr., DO Documentation of Exam: Documentation of any treatments & extenuating circumstances including Concerns Regarding Discharge (functional status, medication knowledge or non-compliance, living conditions, etc.) that warrant an admission rather than observation: Patient requiring surgical consultation, IV hydration, discharge at the time of medically harmful, physical therapy consultation, rehabilitation placement secondary to weakness and deconditioning. Patient nothing by mouth status, case management evaluation. I do not feel this patient will turn around in 24-48 hours. Patient may need NG tube with he begins vomiting. (Elida Mary) PA/SUPREME COURT JUSTICE Co-Sign Statement Statement: ED Attending supervision documentation- [x] I saw and evaluated the patient. I have also reviewed all the pertinent lab results and diagnostic results. I agree with the findings and the plan of care as documented in the PA's/SUPREME COURT JUSTICE's documentation. Patient presents for worsening generalized weakness and falling. Physical examination reveals mildly distended abdomen with decreased bowel sounds. [] I have reviewed the ED Record and agree with the PA's/SUPREME COURT JUSTICE's documentation. [] Additions or exceptions (if any) to the PAs/SUPREME COURT JUSTICE's note and plan are summarized below: [] (Fern CLEMENT,Robin Coronel) Critical Care Note Critical Care Note Critical Care Time: 30-74 min (Elida Mary)
--- NOTE | 2017-07-01 13:23 | RADIOLOGY REPORT ---
EXAMINATION: XR PORTABLE CHEST CLINICAL INFORMATION: Recent admission. Weakness. COMPARISON: Abdominal radiographs from 06/25/2017 TECHNIQUE: Portable frontal view of the chest was obtained. FINDINGS: The thoracic aorta is tortuous with calcification at the knob. The heart size is within normal limits. There is mild patchy opacity in the right base, new from prior. There is minor platelike opacity in the retrocardiac left lower lobe. Otherwise the lungs appear clear. No evidence of pulmonary edema, pleural effusion, or pneumothorax. There is a nonspecific bowel gas pattern with air-filled loops of bowel seen in the upper abdomen. The spine is not well visualized due to technique. The bones appear demineralized. No acute osseous abnormalities are noted. IMPRESSION: There is a small area of patchy opacity in the right base, which may reflect a developing consolidation and was not visualized on the recent prior study.
[2017-07-01 13:56] LABS: ABSOLUTE BASOPHIL COUNT 0 /CUMM (0.0-0.2); ABSOLUTE EOSINOPHIL COUNT 0 /CUMM (0.0-0.7); ABSOLUTE GRANULOCYTE CT 11.1 /CUMM (1.4-6.5); ABSOLUTE LYMPH COUNT 0.4 /CUMM (1.2-3.4); BASOPHIL % 0 % (0.0-2.0); EOSINOPHIL % 0 % (0-5); GRANULOCYTE % 88.4 % (42.2-75.2); MEAN CORPUSCULAR HGB 27.8 PG (27.0-31.0); MEAN CORPUSCULAR VOLUME 84.4 FL (80.0-94.0); MEAN PLATELET VOLUME 7.9 FL (7.4-10.4); PLATELET COUNT 403 /CUMM (130-400); RBC DISTRIBUTION WIDTH 14.9 % (11.5-14.5); RED BLOOD CELL CT 4.45 /CUMM (4.70-6.10); WHITE BLOOD CELL COUNT 12.6 /CUMM (4.8-10.8)
[2017-07-01 13:57] LABS: PT 17.5 SEC (9.4-12.5); PTT 28 SEC (25-37)
[2017-07-01 14:03] LABS: HEMATOCRIT 37.5 % (42-52)
--- NOTE | 2017-07-01 15:17 | CT SCAN REPORT ---
EXAMINATION: CT ABDOMEN AND PELVIS WITH CONTRAST CLINICAL INFORMATION: Pain after fall. Right flank pain. COMPARISON: None. TECHNIQUE: Contiguous axial thin section helical images of the abdomen and pelvis were performed following the administration of 95 mL of intravenous Optiray 320. The data set was reformatted in the coronal and sagittal planes and reviewed on an independent workstation. DLP: 338 mGy-cm. FINDINGS: There is mild bilateral lower lobe bronchiectasis and bronchial wall thickening. There is nonspecific groundglass opacification within the posterior basal segment of the right lower lobe. The visualized lung bases are otherwise clear. The visualized portions of the heart are unremarkable. The liver is of normal size and attenuation without focal lesions nor intrahepatic biliary ductal dilation. A normal gallbladder is identified. There is no wall thickening or discernible pericholecystic fluid. The spleen, pancreas, adrenal glands are unremarkable. Both kidneys are of normal size and attenuation without hydronephrosis or nephrolithiasis. Following the administration of IV contrast, prompt symmetric nephrograms are displayed. There is no abdominal free fluid. There is neither mesenteric nor retroperitoneal lymphadenopathy. There are numerous dilated loops of mid to distal small bowel and proximal large bowel. There is a transition point within the descending colon at a site of anastomosis with intact sutures. There is no pelvic free fluid. The urinary bladder is unremarkable. There is neither pelvic nor inguinal lymphadenopathy. There is a fat-containing left inguinal hernia. Bone windows: Neither sclerotic nor lytic bone lesions are identified. IMPRESSION: Distal bowel obstruction near the anastomosis site. Fat-containing left inguinal hernia. Right lower lobe infiltrate. Recommendation is for a followup chest series to be obtained following treatment and/or resolution of symptoms to assure resolution of this appearance.
--- NOTE | 2017-07-01 18:19 | History & Physical Pre-Op ---
Jerome Ryan 07/01/17 1819: General Information and HPI History of Present Illness: This is a 77 year-old male with a history of COPD, GERD, and adenomatous polpys who recently underwent a subtotal colectomy on 06/23/17 due to polpys of the proximal transverse colon, distal transverse colon and polyposis syndrome who presents with generalized malaise, weakness and abdominal pain with associated nausea, diarrhea and decreaed appetite. He reports vague abdominal pain located in the left upper quadrant and lower quadrants and diarrhea which began after he was discharged from the hospital two days ago. Per the family, patient has had fecal incontience and is slipping on his diarrhea when he cannot make it to the bathroom and falling. He also reports fallings due to his legs feeling weak "giving out", which happened approximately four times. He denies any head injury or loss of conciousness related to the falls. Denies any fever, chills, vomiting, chest pain palpitations or shortness of breath, cough or trouble breathing. He states he last episode of diarrhea was at 3:00 this morning and denies passing flatus today. Allergies/Medications Allergies: Coded Allergies: No Known Allergies (06/20/17) NO KNOWN ALLERGIES PER ANDREW IN SDS ON 06/20/17 - [facility] Home Med list Aspirin (Sierra Aspirin) 81 MG TABLET.DR 1 TAB PO DAILY HEARTHEALTH ( Reported) Citalopram Hydrobromide (Citalopram HBr) 20 MG TABLET 1 TAB PO DAILY DEPRESSION (Reported) Fluticasone/Vilanterol (Breo Ellipta 200-25 Mcg INH) 200 MCG-25 MCG/DOSE BLST.W.DEV 1 INH IH DAILY COPD (Reported) Montelukast Sodium 10 MG TABLET 1 TAB PO DAILY ALLERGIES (Reported) Oxycodone HCl/Acetaminophen (Percocet 5-325 MG Tablet) 5 MG-325 MG TABLET 1-2 TAB PO Q4-6 PRN PRN pain control .tylenol alternatively. do not combine. Roflumilast (Daliresp) 500 MCG TABLET 1 TAB PO DAILY COPD (Reported) Past History Medical History Neurological: NONE EENT: NONE Cardiovascular: NONE Respiratory: COPD Gastrointestinal: GERD, 3/4 COLON REMOVED UMBILICAL HERNIA REPAIR Hepatic: NONE Renal: KIDNEY STONES Musculoskeletal: NONE Psychiatric: NONE Endocrine: NONE Blood Disorders: NONE Cancer(s): colon/rectal cancer F[employer] K[employer]PER/Reproductive: NONE History of MRSA: No History of VRE: No History of CDIFF: No Influenza Vaccine: 02/21/17 Surgical History Pertinent Surgical History: colon resection Past Family/Social History Psychosocial History Services at Home None ETOH Use: denies use Review of Systems Review of Systems: Constitutional: Reports: See HPI EENTM: Reports: no symptoms. Respiratory: Reports: no symptoms. Cardiovascular: Reports: no symptoms. GI: Reports: see HPI Genitourinary: Reports: no symptoms. Musculoskeletal: Reports: no symptoms. Skin: Reports: no symptoms. Neurological/Psychological: Reports: no symptoms. Hematologic/Endocrine: Reports: see HPI Immunologic/Allergic: Reports: no symptoms. All Other Systems: Reviewed and Negative Exam & Diagnostic Data Last 24 Hrs of Vital Signs/I&O Vital Signs Date Time Temp Pulse Resp B/P B/P Pulse O2 O2 Flow FiO2 Mean Ox Delivery Rate 07/01 1720 98.9 93 20 123/70 96 Room Air 07/01 1506 90 120/70 07/01 1206 97 07/01 1203 98.1 98 18 134/76 97 Room Air Intake & Output 07/01 1600 07/01 0800 07/01 0000 Intake Total 1000 Output Total 150 Balance 850 Intake, IV 1000 Intake, Oral 0 Output, Urine 150 Patient 160 lb Weight Weight Reported by Patient Measurement Method Physical Exam: General - Resting comfortably on stretcher awake an alert in NAD HEENT - Dry oral mucosa Cardiac - S1S2 noted, RRR Neck - Supple, no LAD Lungs - Fair inspiratory effort, CTAB Abdomen - Soft, nontender, mildy distended with well healing midline surgical incisions closed with sutures and five lap incisions healing well with internal sutures, with surronding ecchymosis, no surrounding erythema, swelling or drainage noted, tinkering bowel sounds. Mildly tender to palpation in LUQ and lower quadrants without rebound or guarding Extremity - No edema or calf tenderness B/L Back: Ecchymosis over the left flank approximately 15 cm x 10 cm in size, mildly tender to palpation. Last 24 Hrs of Labs/Artie: Laboratory Tests 07/01/17 1541: Lactic Acid Cancelled 07/01/17 1507: Urine Color JES, Urine Clarity HAZY H, Urine pH 6.0, Ur Specific [place] >= 1.030, Urine Protein 30 H, Urine Ketones 40 H, Urine Nitrite POS H, Urine Bilirubin POS@ICTO H, Urine Urobilinogen 0.2, Ur Leukocyte Esterase NEG, Ur Microscopic SEDIMENT EXAMINED, Urine RBC 1-3, Urine WBC RARE, Ur Epithelial Cells FEW, Urine Bacteria FEW H, Hyaline Casts 1-3 H, Granular Casts RARE H, Urine Mucus MOD H, Urine Hemoglobin TRACE-INTACT H, Urine Glucose NEG 07/01/17 1325: Lactic Acid 1.1 07/01/17 1325: Anion Gap 17 H, Estimated GFR > 60, BUN/Creatinine Ratio 18.9, Glucose 75, Calcium 9.0, Total Bilirubin 1.9 H, AST 65 H, ALT 84 H, Alkaline Phosphatase 110, Troponin I 0.04, Total Protein 5.9 L, Albumin 3.4 L, Globulin 2.5, Albumin/Globulin Ratio 1.4, PT 17.5 H, INR 1.68 H, APTT 28, CBC w Diff MAN DIFF ORDERED, RBC 4.45 L, MCV 84.4, MCH 27.8, RDW 14.9 H, MPV 7.9, Gran % 88.4 H, Lymphocytes % 3.5 L, Monocytes % 8.1, Eosinophils % 0, Basophils % 0, Absolute Granulocytes 11.1 H, Segmented Neutrophils 74, Band Neutrophils 15 H, Absolute Lymphocytes 0.4 L, Lymphocytes 6 L, Monocytes 5, Absolute Monocytes 1.0 H, Absolute Eosinophils 0, Absolute Basophils 0, Platelet Estimate VERIFIED BY SMEAR, Poikilocytosis 1+, Anisocytosis 1+, Ovalocytes 1+, Alexa Cells 1+, PUBS MCHC 33.0 07/01/17 1240: Infectious [place] Titer NEGATIVE Microbiology 07/01 1400 BLOOD: Blood Culture - RECD 07/01 1336 BLOOD: Blood Culture - ORD 07/01 1325 NASOPHARYN: Influenza Virus A & B Rapid Smear - COMP 07/01 1240 STOOL: Clostridium difficile Toxin A & B - ORD Diagnostic Data CXR Results SERVICE DATE: 07/01/17-1242 EXAM TYPE: RAD - XRY-PORTABLE CHEST XRAY EXAMINATION: XR PORTABLE CHEST CLINICAL INFORMATION: Recent admission. Weakness. COMPARISON: Abdominal radiographs from 06/25/2017 TECHNIQUE: Portable frontal view of the chest was obtained. FINDINGS: The thoracic aorta is tortuous with calcification at the knob. The heart size is within normal limits. There is mild patchy opacity in the right base, new from prior. There is minor platelike opacity in the retrocardiac left lower lobe. Otherwise the lungs appear clear. No evidence of pulmonary edema, pleural effusion, or pneumothorax. There is a nonspecific bowel gas pattern with air-filled loops of bowel seen in the upper abdomen. The spine is not well visualized due to technique. The bones appear demineralized. No acute osseous abnormalities are noted. IMPRESSION: There is a small area of patchy opacity in the right base, which may reflect a developing consolidation and was not visualized on the recent prior study. DICTATED BY: Mehran Horan MD DATE/TIME DICTATED:07/01/171317 SAMPLE CHECKER:MOHIT DATE/TIME TRANSCRIBED:07/01/171317 Other Results SERVICE DATE: 07/01/17 EXAM TYPE: CAT - CT ABD & PELVIS W IV CONTRAST EXAMINATION: CT ABDOMEN AND PELVIS WITH CONTRAST CLINICAL INFORMATION: Pain after fall. Right flank pain. COMPARISON: None. TECHNIQUE: Contiguous axial thin section helical images of the abdomen and pelvis were performed following the administration of 95 mL of intravenous Optiray 320. The data set was reformatted in the coronal and sagittal planes and reviewed on an independent workstation. DLP: 338 mGy-cm. FINDINGS: There is mild bilateral lower lobe bronchiectasis and bronchial wall thickening. There is nonspecific groundglass opacification within the posterior basal segment of the right lower lobe. The visualized lung bases are otherwise clear. The visualized portions of the heart are unremarkable. The liver is of normal size and attenuation without focal lesions nor intrahepatic biliary ductal dilation. A normal gallbladder is identified. There is no wall thickening or discernible pericholecystic fluid. The spleen, pancreas, adrenal glands are unremarkable. Both kidneys are of normal size and attenuation without hydronephrosis or nephrolithiasis. Following the administration of IV contrast, prompt symmetric nephrograms are displayed. There is no abdominal free fluid. There is neither mesenteric nor retroperitoneal lymphadenopathy. There are numerous dilated loops of mid to distal small bowel and proximal large bowel. There is a transition point within the descending colon at a site of anastomosis with intact sutures. There is no pelvic free fluid. The urinary bladder is unremarkable. There is neither pelvic nor inguinal lymphadenopathy. There is a fat-containing left inguinal hernia. Bone windows: Neither sclerotic nor lytic bone lesions are identified. IMPRESSION: Distal bowel obstruction near the anastomosis site. Fat-containing left inguinal hernia. Right lower lobe infiltrate. Recommendation is for a followup chest series to be obtained following treatment and/or resolution of symptoms to assure resolution of this appearance. Assessment/Plan Assessment/Plan: This is a 77 year-old male who previously underwent an elective subtotal colectomy on 06/23/17, due to polyposis syndrome, negative for maligancy who presents with abdominal pain, nausea, diarrhea and generalized malaise and weakness, found on imaging to have a distal bowel obstruction near his anastomosis site. Right lower lobe infiltrate noted on imaging. Admit to surgical/general floor for conservative management Bowel rest with IVF, may have ice chips Insert NGT if pt becomes nauseous Keep comfortably IV analgesics/antiemetics Monitor with serial abdominal exams Stool cx to rule out c.diff PT eval radha for deconditioning/fall risk Montior RLL infiltrate off abx, asx, f/u w/ cxr during this admission GI ppx on board DVT ppx - alps, hsq Home meds on board Multiview AXR in am D/w Dr. Pete As Ranked By This Provider Problem List: 1. Small bowel obstruction 2. Weakness Tamiaasif Eric VALENCIA 07/02/17 0815: General Information and HPI MD Statement: I have seen and personally examined REIDHAVALLoriKAMILA and documented this H&P. The patient is a 77 year old M who presented with a patient stated chief complaint of diarrhea poor appetite and falling. Agree with the assessment and plan. Admit nothing by mouth IV fluids. Repeat abdominal x-ray in the morning
[2017-07-01 21:27] VITALS: BP 160/86
[2017-07-02 06:14] VITALS: BP 144/70
--- NOTE | 2017-07-02 07:27 | PN- General Surgery ---
See Addendum Subjective Subjective: Patient feeling better today. No nausea no vomiting. Slight belching. Tolerating clears. Had a bowel movement this morning Objective Vital Signs and I&Os Vital Signs Date Time Temp Pulse Resp B/P B/P Pulse O2 O2 Flow FiO2 Mean Ox Delivery Rate 07/02 0614 97.5 82 20 144/70 96 Room Air 07/01 2127 98.1 84 20 160/86 98 Room Air 07/01 1956 100.1 91 18 129/70 96 Room Air 07/01 1720 98.9 93 20 123/70 96 Room Air 07/01 1506 90 120/70 07/01 1206 97 07/01 1203 98.1 98 18 134/76 97 Room Air Intake & Output 07/02 0800 07/02 0000 07/01 1600 07/01 0800 07/01 0000 06/30 1600 Intake Total 5062 485 5871 Output Total 150 Balance 1240 250 850 Intake, IV 4312 803 4526 Intake, Oral 240 0 Number 2 Bowel Movements Output, Urine 150 Patient 164 lb 160 lb Weight Weight Reported by Patient Measurement Method Physical Exam: Well-developed well-nourished no apparent distress. HEENT: Atraumatic, extraocular motion intact Neck: Supple, no lymphadenopathy Respiratory: No respiratory distress Abdomen: Mildly softly distended. Incision clean dry and intact. Healing well. Mild tenderness at the mid abdominal region about the incision and superiorly. Not tympanic. Positive bowel sounds Extremities: No edema, no calf pain Neuro: Alert and oriented x3 Psych: Mood affect normal, normal memory normal judgment. Skin: Warm and dry, no rash on exposed skin Results Last 48 Hours of Labs: Laboratory Tests 07/01 07/01 07/01 1541 1507 1325 Chemistry Lactic Acid (0.7 - 2.1 mmol/L) Cancelled 1.1 Urines Urine Color (YEL,AMB,STR) JES Urine Clarity (CLEAR) HAZY H Urine pH (5.0 - 8.0) 6.0 Ur Specific [place] (1.001 - 1.035) >= 1.030 Urine Protein (NEG,<30 MG/DL) 30 H Urine Ketones (NEG) 40 H Urine Nitrite (NEG) POS H Urine Bilirubin (NEG) POS@ICTO H Urine Urobilinogen (0.1 - 1.0 EU/dl) 0.2 Ur Leukocyte Esterase (NEG) NEG Ur Microscopic SEDIMENT EXAMINED Urine RBC (0 - 5 /HPF) 1-3 Urine WBC (0 - 2 /HPF) RARE Ur Epithelial Cells (NONE,FEW) FEW Urine Bacteria (NEG/NONE) FEW H Hyaline Casts (0/LPF) 1-3 H Granular Casts (NONE /LPF) RARE H Urine Mucus (FEW,NONE) MOD H Urine Hemoglobin (NEG) TRACE-INTACT H Urine Glucose (N MG/DL) NEG 07/01 07/01 1325 1240 Chemistry Sodium (137 - 145 mmol/L) 143 Potassium (3.5 - 5.1 mmol/L) 3.6 Chloride (98 - 107 mmol/L) 105 Carbon Dioxide (22 - 30 mmol/L) 21 L Anion Gap (5 - 16) 17 H BUN (9 - 20 mg/dL) 17 Creatinine (0.7 - 1.2 mg/dL) 0.9 Estimated GFR (>60 ml/min) > 60 BUN/Creatinine Ratio (7 - 25 %) 18.9 Glucose (65 - 99 mg/dL) 75 Calcium (8.4 - 10.2 mg/dL) 9.0 Total Bilirubin (0.2 - 1.3 mg/dL) 1.9 H AST (17 - 59 U/L) 65 H ALT (21 - 72 U/L) 84 H Alkaline Phosphatase (< 127 U/L) 110 Troponin I (<0.11 ng/ml) 0.04 Total Protein (6.3 - 8.2 g/dL) 5.9 L Albumin (3.5 - 5.0 g/dL) 3.4 L Globulin (1.9 - 4.2 gm/dL) 2.5 Albumin/Globulin Ratio (1.1 - 2.2 %) 1.4 Coagulation PT (9.4 - 12.5 SEC) 17.5 H INR (0.90 - 1.17) 1.68 H APTT (25 - 37 SEC) 28 Hematology CBC w Diff MAN DIFF ORDERED WBC (4.8 - 10.8 /CUMM) 12.6 H RBC (4.70 - 6.10 /CUMM) 4.45 L Hgb (14.0 - 18.0 G/DL) 12.4 L Hct (42 - 52 %) 37.5 L MCV (80.0 - 94.0 FL) 84.4 MCH (27.0 - 31.0 PG) 27.8 RDW (11.5 - 14.5 %) 14.9 H Plt Count (130 - 400 /CUMM) 403 H MPV (7.4 - 10.4 FL) 7.9 Gran % (42.2 - 75.2 %) 88.4 H Lymphocytes % (20.5 - 51.1 %) 3.5 L Monocytes % (1.7 - 9.3 %) 8.1 Eosinophils % (0 - 5 %) 0 Basophils % (0.0 - 2.0 %) 0 Absolute Granulocytes (1.4 - 6.5 /CUMM) 11.1 H Segmented Neutrophils (42.2 - 75.2 %) 74 Band Neutrophils (0.0 - 5.0 %) 15 H Absolute Lymphocytes (1.2 - 3.4 /CUMM) 0.4 L Lymphocytes (20.5 - 51.1 %) 6 L Monocytes (1.7 - 9.3 %) 5 Absolute Monocytes (0.10 - 0.60 /CUMM) 1.0 H Absolute Eosinophils (0.0 - 0.7 /CUMM) 0 Absolute Basophils (0.0 - 0.2 /CUMM) 0 Platelet Estimate (ADEQUATE) VERIFIED BY SMEAR Poikilocytosis 1+ Anisocytosis 1+ Ovalocytes 1+ Alexa Cells 1+ PUBS MCHC (33.0 - 37.0 G/DL) 33.0 Serology Infectious [place] Titer (NEGATIVE) NEGATIVE Assessment/Plan Assessment/Plan Admitted for small bowel obstruction status post subtotal colectomy Early return of bowel function noted, ice chips for now IVF Insert NGT if pt becomes nauseous IV analgesics/antiemetics Monitor with serial abdominal exams Stool cx to rule out c.diff PT eval radha for deconditioning/fall risk Montior ?RLL infiltrate off abx, asymptomatic clinically, f/u w/ cxr during this admission GI ppx on board DVT ppx - alps, hsq Home meds Multiview AXR follow am labs will Dw Dr Pete Core Measures Venous Thromboembolism VTE Risk Factors Age>40 No Mechanical VTE Prophylaxis d/t N/A MechProphylax Ordered No VTE Pharm Prophylaxis d/t NA PharmProphylax ordered
[2017-07-02 09:05] LABS: ABSOLUTE BASOPHIL COUNT 0 /CUMM (0.0-0.2); ABSOLUTE EOSINOPHIL COUNT 0.1 /CUMM (0.0-0.7); ABSOLUTE GRANULOCYTE CT 4.2 /CUMM (1.4-6.5); ABSOLUTE LYMPH COUNT 0.8 /CUMM (1.2-3.4); ABSOLUTE MONOCYTE COUNT 0.9 /CUMM (0.10-0.60); BASOPHIL % 0.2 % (0.0-2.0); EOSINOPHIL % 2.4 % (0-5); GRANULOCYTE % 69.1 % (42.2-75.2); MEAN CORPUSCULAR HGB 28.2 PG (27.0-31.0); MEAN CORPUSCULAR HGB CONC 33.5 G/DL (33.0-37.0); MEAN CORPUSCULAR VOLUME 84.1 FL (80.0-94.0); MEAN PLATELET VOLUME 7.9 FL (7.4-10.4); PLATELET COUNT 384 /CUMM (130-400); RED BLOOD CELL CT 3.69 /CUMM (4.70-6.10)
[2017-07-02 09:28] LABS: HEMATOCRIT 31.1 % (42-52); WHITE BLOOD CELL COUNT 6.1 /CUMM (4.8-10.8)
--- NOTE | 2017-07-02 12:30 | RADIOLOGY REPORT ---
EXAMINATION: CR ABDOMEN MULTIPLE VIEWS CLINICAL INDICATION: Follow-up of small bowel obstruction. COMPARISON: Two-view abdomen dated 06/25/2017. CT scan of the abdomen and pelvis dated 07/01/2017. TECHNIQUE: 2 views of the abdomen performed on 3 images. FINDINGS: There is persistent significant dilatation of the small bowel loops with multiple air-fluid levels seen. Small bowel loops measure up to 6 cm in diameter. No pneumatosis is seen and no free air is noted. Relative paucity of bowel gas in the rectum is noted and findings are consistent with a high grade partial bowel obstruction. The patient appears to be status post prior colectomy with ileocolonic anastomosis seen in the left lower quadrant. Some gas is seen in the rectum. Contrast is seen outlining the decompressed bladder. Multilevel degenerative changes as seen in the spine. Patchy opacities are noted in the lung bases bilaterally. IMPRESSION: 1. Findings are suspicious for ongoing high-grade partial distal bowel obstruction. No evidence of pneumatosis or bowel perforation. 2. Bibasilar patchy parenchymal opacities are seen, possibly due to atelectasis or subtle pneumonitis. Clinical correlation requested.
[2017-07-02 22:23] VITALS: BP 160/70
[2017-07-03 06:54] VITALS: BP 156/86
--- NOTE | 2017-07-03 07:37 | PN- General Surgery ---
Subjective Subjective: He has not ambulated since admission. Denies nausea or emesis, although nurse he had mild nausea at night. Not passing flatus, had 1 episode of loose stool overnight Has taken IV morphine twice over niht shift Objective Vital Signs and I&Os Vital Signs Date Time Temp Pulse Resp B/P B/P Pulse O2 O2 Flow FiO2 Mean Ox Delivery Rate 07/03 0654 97.8 85 20 156/86 96 Room Air 07/02 2223 98.3 75 20 160/70 94 07/02 1220 Room Air Intake & Output 07/03 0800 07/03 0000 07/02 1600 07/02 0800 07/02 0000 07/01 1600 Intake Total 1230 1160 8846 985 3767 Output Total 150 Balance 1230 1160 1240 250 850 Intake, IV 542 517 8115 250 1000 Intake, Oral 480 360 240 0 Number 1 2 Bowel Movements Output, Urine 150 Patient 164 lb 160 lb Weight Weight Reported by Patient Measurement Method Alert, oriented, no distress. Looks comfortable. Lungs clear bilat. Heart regular. Abdomen is softly distended, Mild tenderness on palpation centrally.No tympany appreciated on percussion. Midline incision with sutures are clean, dry. Assessment/Plan Assessment/Plan s/p partial colectomy on 06/23/17 for colon cancer, admittd with weakness, dehydration and diarhhea, SBO ,HD#2 Clinically unchanged over last 24 hrs. Abdomen with soft distention. No evidence of bowel fxn. He is not passing flatus and requires narcotics for pain control. Diarrhea seems improving, one episode over night. C. diff was sent AXR yesterday with persistent dilitation of small bowel with air fluid levels. Would await advancing diet Will follow electrolytes results today and adjust IVF as needed. Hypokaliemia requiring replacement yesterday, will follow today. Increase activity to promote bowel fxn., pt. has not ambulated. Limit narcotics Will discuss with team and surgeon.
--- NOTE | 2017-07-03 09:09 | PN- General Surgery ---
Surgical Brief Attending Note Brief Attending Note: Patient subjectively feels better Continues to pass loose stools multiple times per day Remains AVSS Abdomen still distended and tympanitic unchanged from yesterday Abdominal x-ray performed yesterday demonstrates ongoing small bowel dilatation 1. Medical picture consistent with ongoing partial small bowel obstruction versus ileus Agree with advancing diet Would obtain PICC line and start TPN 2. Patient hypernatremic and hyperchloremic on labs this morning Switch to half normal saline pending initiation of TPN
[2017-07-03 15:15] VITALS: BP 110/60
--- NOTE | 2017-07-03 15:55 | RADIOLOGY REPORT ---
EXAMINATION: XR PORTABLE CHEST CLINICAL INFORMATION: Placement of PICC line. COMPARISON: Chest x-ray dated 07/01/2017 TECHNIQUE: Portable frontal view of the chest was obtained. FINDINGS: Right-sided PICC line. The tip is difficult to follow but appears to be near the cavoatrial junction or upper right atrium. Stable Cardia mediastinal silhouette. Mild hazy prominence of the pulmonary markings right mid to lower lung likely representing reticular changes also seen on the CT scan. No acute airspace opacity. No evidence of pleural effusion. No evidence of pneumothorax. IMPRESSION: 1. Right-sided PICC line in place. 2. Subtle reticular changes right mid to lower lung with improved aeration compared to the prior study.
--- NOTE | 2017-07-03 17:28 | RADIOLOGY REPORT ---
EXAMINATION: CR ABDOMEN MULTIPLE VIEWS CLINICAL INDICATION: Small bowel obstruction. Postoperative evaluation. Presumptive diagnosis of small bowel obstruction. COMPARISON: Two-view abdomen dated 07/02/2017. CT scan of the abdomen and pelvis dated 07/01/2017. TECHNIQUE: 2 views of the abdomen. FINDINGS: Again seen is significant gaseous distention of multiple loops of small bowel with luminal diameter of up to 5.5 cm as compared to 6 cm on previous KUB. Dilated small bowel loops extend down to the left lower quadrant to the region of the ileocolonic anastomosis. Multiple air-fluid levels are seen within the small bowel loops. No pneumatosis or free air is seen. There continues to be some gas within nondilated rectum. Lung bases show minimal dependent atelectatic changes. S-shaped thoracolumbar scoliosis and multilevel degenerative changes in the spine again noted. IMPRESSION: 1. Persistent high-grade partial distal small bowel obstruction with slight improvement in the degree of small bowel dilatation. 2. No evidence of bowel perforation.
[2017-07-03 22:45] VITALS: BP 172/100
[2017-07-03 23:00] VITALS: BP 168/94
[2017-07-04 06:55] VITALS: BP 110/84
--- NOTE | 2017-07-04 07:17 | PN- General Surgery ---
Subjective Subjective: Patient resting comfortably in bed. Had BMs yesterday. Nothing overnight. Unsure if passed flatus. TPN initiated yesterday. Objective Vital Signs and I&Os Vital Signs Date Time Temp Pulse Resp B/P B/P Pulse O2 O2 Flow FiO2 Mean Ox Delivery Rate 07/04 1353 98.9 88 18 110/90 96 07/04 0655 98.0 86 18 110/84 95 Room Air 07/03 2300 168/94 07/03 2245 97.6 71 20 172/100 97 Room Air Intake & Output 07/04 1600 07/04 0800 07/04 0000 07/03 1600 07/03 0800 07/03 0000 Intake Total 1480.4 1140.4 992.6 1750 1240 1230 Output Total 500 300 500 Balance 980.4 1140.4 992.6 1254 509 2096 Intake, IV 600 450 876 636 2999 750 Intake, Lipid 50.4 50.4 12.6 Intake, Oral 350 821 144 3255 240 480 Intake, 480 400 100 TPN/PPN Number 2 Bowel Movements Output, Stool 500 Output, Urine 500 300 Patient 164 lb Weight Physical Exam: Gen:AAox3 in NAD cor: s1+S2+ Lungs: CTA vanessa Abd: softly distended, tympanitic, incision intact with sutures Ext: no edema or calf tenderness to vanessa lower extremities. Current Medications: Current Medications Sig/Mery Start time Last Medication Dose Route Stop Time Status Admin Acetaminophen 1,000 MG Q6P PRN 07/01 1829 N/A 1 UNIT IV Citalopram 20 MG DAILY 07/02 1000 07/04 Hydrobromide PO 0933 Dextrose/Sodium 1,000 ML Q13H 07/03 0945 07/04 Chloride IV 0548 Fat Emulsion 500 ML Q24H 07/04 190 AC Intravenous IV 07/05 185 Fat Emulsion 500 ML Q24H 07/03 190 AC 07/03 Intravenous IV 07/04 Heparin Sodium 5,000 UNIT Q8 07/01 (Porcine) SC 1323 Montelukast Sodium 10 MG AT BEDTIME 07/02 PO 2152 Morphine Sulfate 2 MG Q4P PRN 07/01 183 AC IV Morphine Sulfate 4 MG Q4-6 PRN PRN 07/01 18307/04 IV 1323 Morphine Sulfate 6 MG Q4-6 PRN PRN 07/01 1830 07/04 IV 0548 Ondansetron HCl 4 MG Q8P PRN 07/01 1830 07/03 IV 0314 Pantoprazole Sodium 40 MG DAILY 07/02 1000 07/04 IV 0933 Roflumilast 500 MCG DAILY 07/02 1000 07/04 PO 0933 Total Parenteral 1 UNIT Q24H 07/04 190 Nutrition IV 07/05 1858 Total Parenteral 1 UNIT Q24H 07/03 190 07/03 Nutrition IV 07/04 Results Last 48 Hours of Labs: Laboratory Tests 07/04 07/03 0552 0635 Chemistry Sodium (137 - 145 mmol/L) 142 147 H Potassium (3.5 - 5.1 mmol/L) 3.7 3.8 Chloride (98 - 107 mmol/L) 107 115 H Carbon Dioxide (22 - 30 mmol/L) 24 21 L Anion Gap (5 - 16) 12 12 BUN (9 - 20 mg/dL) 8 L 9 Creatinine (0.7 - 1.2 mg/dL) 0.7 0.7 Estimated GFR (>60 ml/min) > 60 > 60 BUN/Creatinine Ratio (7 - 25 %) 11.4 12.9 Calcium (8.4 - 10.2 mg/dL) 8.6 Phosphorus (2.5 - 4.5 mg/dL) 2.7 Magnesium (1.6 - 2.3 mg/dL) 1.7 1.8 Assessment/Plan Assessment/Plan A: PSBO after subtotal colectomy (POD #11); AVSS Plan: Renew TPN Replete labwork. OOB and ambulate. Await for resolution of PSBO. Core Measures Venous Thromboembolism VTE Risk Factors Age>40 No Mechanical VTE Prophylaxis d/t N/A MechProphylax Ordered No VTE Pharm Prophylaxis d/t NA PharmProphylax ordered
[2017-07-04 13:53] VITALS: BP 110/90
[2017-07-04 22:53] VITALS: BP 118/60
[2017-07-05 06:51] VITALS: BP 160/80
[2017-07-05 10:02] LABS: ABSOLUTE BASOPHIL COUNT 0 /CUMM (0.0-0.2); ABSOLUTE EOSINOPHIL COUNT 0.1 /CUMM (0.0-0.7); ABSOLUTE GRANULOCYTE CT 5.2 /CUMM (1.4-6.5); ABSOLUTE LYMPH COUNT 0.7 /CUMM (1.2-3.4); ABSOLUTE MONOCYTE COUNT 0.6 /CUMM (0.10-0.60); BASOPHIL % 0.1 % (0.0-2.0); EOSINOPHIL % 1.7 % (0-5); GRANULOCYTE % 78.9 % (42.2-75.2); MEAN CORPUSCULAR HGB 27.8 PG (27.0-31.0); MEAN CORPUSCULAR HGB CONC 32.6 G/DL (33.0-37.0); MEAN CORPUSCULAR VOLUME 85.4 FL (80.0-94.0); MEAN PLATELET VOLUME 7.9 FL (7.4-10.4); PLATELET COUNT 204 /CUMM (130-400); WHITE BLOOD CELL COUNT 6.6 /CUMM (4.8-10.8)
[2017-07-05 10:31] LABS: HEMATOCRIT 41.2 % (42-52); RED BLOOD CELL CT 4.82 /CUMM (4.70-6.10)
--- NOTE | 2017-07-05 10:58 | PN- General Surgery ---
Surgical Brief Attending Note Brief Attending Note: Patient states has crampy abdominal pain at times and waves of nausea at times Still having some daily liquid bowel movement Remains AVSS Labs reviewed and are okay no leukocytosis or major electrolyte abnormality Exam is still softly distended and tympanitic Impression: Early postoperative partial small bowel obstruction. Plan: May continue sips of clears Continued TPN Obtain abdominal x-ray for tomorrow a.m. If has persistent global dilation of the bowel on tomorrow's x-ray will place nasogastric tube to decompress Would continue to avoid surgery as this is postop inflammatory time
[2017-07-05 14:27] VITALS: BP 120/70
[2017-07-05 22:13] VITALS: BP 148/84
[2017-07-06 07:01] VITALS: BP 138/88
--- NOTE | 2017-07-06 09:27 | PN- General Surgery ---
See Addendum Subjective Subjective: Reports feeling better. Tolerating clears. No nausea. Reports some ongoing abdominal discomfort. Reports moving loose stool. Unclear about flatus. Reports ambulating without difficulty. Objective Vital Signs and I&Os Vital Signs Date Time Temp Pulse Resp B/P B/P Pulse O2 O2 Flow FiO2 Mean Ox Delivery Rate 07/06 0701 98.3 77 20 138/88 96 Room Air 07/05 2213 98.0 84 20 148/84 96 Room Air 07/05 1427 98.0 66 20 120/70 97 Intake & Output 07/06 1600 07/06 0800 07/06 0000 07/05 1600 07/05 0800 07/05 0000 Intake Total 1320.0 1384.1 1610.4 1083.2 418.0 Output Total 500 Balance 820.0 1384.1 1610.4 1083.2 418.0 Intake, IV 400 350 400 400 200 Intake, Lipid 100.0 79.1 10.4 83.2 31.0 Intake, Oral 220 480 600 Intake, 600 475 600 600 187 TPN/PPN Number 1 1 Bowel Movements Output, Urine 500 Physical Exam: General - alert & oriented. comfortable. no acute distress. Lungs - clear bilaterally. no w/r/r. Cardiac - s1s2. reg. Abdomen - softly distended. some raven-incisional tenderness. sutures remain in place midline incision. Extremities - warm bilaterally. no c/c/e. calves soft and nontender b/l. Current Medications: Current Medications Sig/Mery Start time Last Medication Dose Route Stop Time Status Admin Acetaminophen 1,000 MG Q6P PRN 07/01 1830 N/A 1 UNIT IV Citalopram 20 MG DAILY 07/02 1000 AC 07/06 Hydrobromide PO 0838 Dextrose/Sodium 1,000 ML Q13H 07/03 0945 AC 07/05 Chloride IV 190 Fat Emulsion 300 ML Q24H 07/05 190 AC 07/05 Intravenous IV 07/06 185 190 Fat Emulsion 500 ML Q24H 07/04 190 DC 07/04 Intravenous IV 07/05 Heparin Sodium 5,000 UNIT Q8 07/01 2199 AC 07/06 (Porcine) SC 0505 Montelukast Sodium 10 MG AT BEDTIME 07/02 2199 AC 07/05 PO 2214 Morphine Sulfate 2 MG Q4P PRN 07/01 183 AC 07/06 IV 0459 Morphine Sulfate 4 MG Q4-6 PRN PRN 07/01 183 AC 07/05 IV 2214 Morphine Sulfate 6 MG Q4-6 PRN PRN 07/01 183 AC 07/04 IV 0548 Ondansetron HCl 4 MG Q8P PRN 07/01 183 AC 07/06 IV 0502 Pantoprazole Sodium 40 MG DAILY 07/02 1000 AC 07/06 IV 0839 Roflumilast 500 MCG DAILY 07/02 1000 AC 07/06 PO 0838 Total Parenteral 1 UNIT Q24H 07/05 1900 AC 07/05 Nutrition IV 07/06 Total Parenteral 1 UNIT Q24H 07/04 190 GA 07/04 Nutrition IV 07/05 Results Last 48 Hours of Labs: Laboratory Tests 07/06 07/05 0532 0600 Chemistry Sodium (137 - 145 mmol/L) Pending 139 Potassium (3.5 - 5.1 mmol/L) Pending 4.1 Chloride (98 - 107 mmol/L) Pending 102 Carbon Dioxide (22 - 30 mmol/L) Pending 24 Anion Gap (5 - 16) Pending 12 BUN (9 - 20 mg/dL) Pending 13 Creatinine (0.7 - 1.2 mg/dL) Pending 0.7 Estimated GFR (>60 ml/min) > 60 BUN/Creatinine Ratio (7 - 25 %) Pending 18.6 Calcium (8.4 - 10.2 mg/dL) 8.5 Phosphorus (2.5 - 4.5 mg/dL) Pending 3.6 Magnesium (1.6 - 2.3 mg/dL) Pending 1.7 Hematology CBC w Diff NO MAN DIFF REQ WBC (4.8 - 10.8 /CUMM) 6.6 RBC (4.70 - 6.10 /CUMM) 4.82 Hgb (14.0 - 18.0 G/DL) 13.4 L Hct (42 - 52 %) 41.2 L MCV (80.0 - 94.0 FL) 85.4 MCH (27.0 - 31.0 PG) 27.8 MCHC (33.0 - 37.0 G/DL) 32.6 L RDW (11.5 - 14.5 %) 16.0 H Plt Count (130 - 400 /CUMM) 204 MPV (7.4 - 10.4 FL) 7.9 Gran % (42.2 - 75.2 %) 78.9 H Lymphocytes % (20.5 - 51.1 %) 10.4 L Monocytes % (1.7 - 9.3 %) 8.9 Eosinophils % (0 - 5 %) 1.7 Basophils % (0.0 - 2.0 %) 0.1 Absolute Granulocytes (1.4 - 6.5 /CUMM) 5.2 Absolute Lymphocytes (1.2 - 3.4 /CUMM) 0.7 L Absolute Monocytes (0.10 - 0.60 /CUMM) 0.6 Absolute Eosinophils (0.0 - 0.7 /CUMM) 0.1 Absolute Basophils (0.0 - 0.2 /CUMM) 0 Assessment/Plan Assessment/Plan This 77 year old male is here with partial sbo after subtotal colectomy (POD #13 ), tpn continues for malnutrition continue clears as tolerated f/u labs continue tpn f/u xray. may consider npo / ngt if xray shows persistent sbo oob/ambulation hep sc - dvt ppx will d/w Core Measures Venous Thromboembolism VTE Risk Factors Age>40 No Mechanical VTE Prophylaxis d/t N/A MechProphylax Ordered No VTE Pharm Prophylaxis d/t NA PharmProphylax ordered
[2017-07-06 13:56] VITALS: BP 122/72
--- NOTE | 2017-07-06 15:20 | RADIOLOGY REPORT ---
EXAMINATION: XR ABDOMEN MULTIPLE VIEWS CLINICAL INDICATION: Abdominal distention. Small bowel obstruction. COMPARISON: 07/03/2017 TECHNIQUE: 2 views of the abdomen. FINDINGS: Persistent diffuse distention of the small bowel with scattered air-fluid levels. The degree of small bowel dilatation is not appreciably changed compared to 07/03/2017. No evidence of pneumatosis intestinalis, pneumoperitoneum or other significant interval change. IMPRESSION: Persistent distal small bowel obstruction -- or ileus -- with scattered air-fluid levels within the distended bowel. The degree of bowel distention is not appreciably changed compared to 07/03/2017.
[2017-07-06 22:09] VITALS: BP 140/80
[2017-07-07 07:24] VITALS: BP 142/82
--- NOTE | 2017-07-07 07:49 | PN- General Surgery ---
See Addendum Subjective Subjective: Awake, alert No complaints overnight except increased urine output keeping himi up. Tolerating full liquid diet - no pain or nausea with eating. Admits to 4 soft stools yesterday - not straight liquid as before, more formed Ambulating without difficulty Wants to shower Objective Vital Signs and I&Os Vital Signs Date Time Temp Pulse Resp B/P B/P Pulse O2 O2 Flow FiO2 Mean Ox Delivery Rate 07/07 0724 97.9 75 20 142/82 96 Room Air 07/06 2209 98.4 74 20 140/80 95 07/06 1356 98.2 92 20 122/72 96 Intake & Output 07/07 0800 07/07 0000 07/06 1600 07/06 0800 07/06 0000 07/05 1600 Intake Total 950.0 550.0 1500.0 1320.0 1384.1 1610.4 Output Total 500 Balance 950.0 550.0 1500.0 820.0 1384.1 1610.4 Intake, IV 50 400 400 350 400 Intake, Lipid 100.0 50.0 100.0 100.0 79.1 10.4 Intake, Oral 200 200 400 220 480 600 Intake, 600 300 600 600 475 600 TPN/PPN Number 1 Bowel Movements Output, Urine 500 Physical Exam: vss, afebrile General: alert and oriented times three Chest: clear anteriorly bilaterally, RRR Abd: soft, nondistended, good bs, nontender throughout even to deep palpation of LUQ, except for surrounding midline incision - appropriate raven incisional tenderness Ext: warm, no edema Wds: all look good, midline sutures intact, no erythema or drainage Results Last 48 Hours of Labs: Laboratory Tests 07/07 07/06 0540 0532 Chemistry Sodium (137 - 145 mmol/L) Pending 140 Potassium (3.5 - 5.1 mmol/L) Pending 4.3 Chloride (98 - 107 mmol/L) Pending 100 Carbon Dioxide (22 - 30 mmol/L) Pending 26 Anion Gap (5 - 16) Pending 14 BUN (9 - 20 mg/dL) Pending 17 Creatinine (0.7 - 1.2 mg/dL) Pending 0.7 Estimated GFR (>60 ml/min) > 60 BUN/Creatinine Ratio (7 - 25 %) Pending 24.3 Phosphorus (2.5 - 4.5 mg/dL) Pending 4.5 Magnesium (1.6 - 2.3 mg/dL) Pending 2.0 Recent Imaging Studies: Abdominal XR IMPRESSION: Persistent distal small bowel obstruction -- or ileus -- with scattered air-fluid levels within the distended bowel. The degree of bowel distention is not appreciably changed compared to 07/03/2017. Assessment/Plan Assessment/Plan 77yo male admitted with sbo now hospital day6 s/p subtotal colectomy 14 days ago on tpn and now advanced to full liquids abdominal xray yesterday essentially unchanged Seems to be tolerating full liquids - stools are more formed May shower or sponge bath as desired ?advance diet - will discuss with Dr Pete follow up labs continue tpn at this time Core Measures Venous Thromboembolism VTE Risk Factors Age>40 No Mechanical VTE Prophylaxis d/t N/A MechProphylax Ordered No VTE Pharm Prophylaxis d/t NA PharmProphylax ordered
[2017-07-07 14:07] VITALS: BP 150/90
[2017-07-07 22:24] VITALS: BP 142/80
[2017-07-08 07:20] VITALS: BP 138/78
--- NOTE | 2017-07-08 08:58 | PN- General Surgery ---
See Addendum Subjective Subjective: PT SITTING IN CHAIR, NO COMPLAINTS. SAYS ABD PAIN IS MUCH LESS. HAD LOOSE STOOL YESTERDAY, +FLATUS. NOT A GREAT APPETITE BUT WILL TRY SOME FOOD TODAY. ABULATING. DENIES FEVER, CP/SOB. Objective Vital Signs and I&Os Vital Signs Date Time Temp Pulse Resp B/P B/P Pulse O2 O2 Flow FiO2 Mean Ox Delivery Rate 07/08 0720 97.4 75 18 138/78 98 Room Air 07/07 2224 98.1 78 18 142/80 97 Room Air 07/07 1407 97.7 83 20 150/90 96 Intake & Output 07/08 1600 07/08 0800 07/08 0000 07/07 1600 07/07 0800 07/07 0000 Intake Total 1060.0 1110.0 1300.0 950.0 550.0 Output Total Balance 1060.0 1110.0 1300.0 950.0 550.0 Intake, IV 50 50 Intake, Lipid 100.0 100.0 100.0 100.0 50.0 Intake, Oral 360 360 600 200 200 Intake, 600 600 600 600 300 TPN/PPN Number 1 2 Bowel Movements Physical Exam: GEN- NAD RESP-CLEAR CARDIO-RRR ABD-NONDISTENDED, +BS, SOFT, NONTENDER. INCISTIONS CLEAN AND DRY, NO SIGNS OF INFEVTION. STERI-STRIPS IN PLACE Assessment/Plan Assessment/Plan Assessment/Plan 77yo male admitted with sbo now hospital day6 s/p subtotal colectomy 14 days ago on tpn starting low fiber diet today will start to ween TPN this morning by stoppiung lipids and cut TPN rate to 40cc /hr May shower or sponge bath as desired follow up labs Core Measures Venous Thromboembolism VTE Risk Factors Age>40 No Mechanical VTE Prophylaxis d/t N/A MechProphylax Ordered No VTE Pharm Prophylaxis d/t NA PharmProphylax ordered
[2017-07-08 13:59] VITALS: BP 130/80
[2017-07-08 22:32] VITALS: BP 116/68
[2017-07-09 06:15] VITALS: BP 132/70
--- NOTE | 2017-07-09 07:31 | PN- General Surgery ---
Subjective Subjective: No complaints. Tolerating low fiber diet. States he felt nauseous once or twice yesterday but not overnight and not this morning. Passing flatus and continues to have loose bms. Ambulating without difficulty. No dizziness. No shortness of breath. No chest pains. Voiding well. Anticipates discharge to home tomorrow if tolerating diet. Weaned off tpn yesterday. Objective Vital Signs and I&Os Vital Signs Date Time Temp Pulse Resp B/P B/P Pulse O2 O2 Flow FiO2 Mean Ox Delivery Rate 07/09 0615 98.0 80 20 132/70 95 Room Air 07/08 2232 98.3 75 20 116/68 96 Room Air 07/08 1600 Room Air Room Air 07/08 1359 97.9 83 20 130/80 98 07/08 0800 98 Room Air Room Air Intake & Output 07/09 0800 07/09 0000 07/08 1600 07/08 0800 07/08 0000 07/07 1600 Intake Total 410 095 105 4566.0 1110.0 1300.0 Output Total 100 Balance 410 295 710 5893.0 1110.0 1300.0 Intake, IV 50 50 Intake, Lipid 100.0 100.0 100.0 Intake, Oral 360 480 400 360 360 600 Intake, 80 600 600 600 TPN/PPN Number 1 1 2 Bowel Movements Output, Urine 100 Physical Exam: General - alert & oriented x 3. comfortable. no acute distress. Lungs - clear bilaterally. no w/r/r. Cardiac - s1s2. reg. Abdomen - soft. midline incision approximated with steri strips. bowel sounds appreciated. mild raven-incisional tenderness. Extremities - warm bilaterally. no c/c/e. calves soft and nontender b/l. Current Medications: Current Medications Sig/Mery Start time Last Medication Dose Route Stop Time Status Admin Acetaminophen 1,000 MG Q6P PRN 07/01 1830 AC N/A 1 UNIT IV Citalopram 20 MG DAILY 07/02 1000 AC 07/08 Hydrobromide PO 0947 Fat Emulsion 300 ML Q24H 07/07 1900 DC 07/07 Intravenous IV 07/08 185 194 Heparin Sodium 5,000 UNIT Q8 07/01 2199 AC 07/09 (Porcine) SC 0550 Montelukast Sodium 10 MG AT BEDTIME 07/02 2199 AC 07/08 PO 211 Morphine Sulfate 2 MG Q4P PRN 07/01 1830 DC 07/06 IV 1507 Morphine Sulfate 4 MG Q4-6 PRN PRN 07/01 1830 DC 07/08 IV 1649 Morphine Sulfate 6 MG Q4-6 PRN PRN 07/01 1830 DC 07/07 IV 2146 Ondansetron HCl 4 MG Q8P PRN 07/01 1830 AC 07/07 IV 1757 Pantoprazole Sodium 40 MG DAILY 07/02 1000 AC 07/08 IV 0947 Roflumilast 500 MCG DAILY 07/02 1000 AC 07/08 PO 0947 Total Parenteral 1 UNIT Q24H 07/07 1900 DC 07/07 Nutrition IV 07/08 1859 1948 Results Last 48 Hours of Labs: Laboratory Tests 07/09 07/08 0550 0559 Chemistry Sodium (137 - 145 mmol/L) Pending 139 Potassium (3.5 - 5.1 mmol/L) Pending 4.7 Chloride (98 - 107 mmol/L) Pending 98 Carbon Dioxide (22 - 30 mmol/L) Pending 26 Anion Gap (5 - 16) Pending 15 BUN (9 - 20 mg/dL) Pending 21 H Creatinine (0.7 - 1.2 mg/dL) Pending 0.8 Estimated GFR (>60 ml/min) > 60 BUN/Creatinine Ratio (7 - 25 %) Pending 26.3 H Phosphorus (2.5 - 4.5 mg/dL) Pending 4.0 Magnesium (1.6 - 2.3 mg/dL) Pending 1.9 Hematology CBC w Diff Pending WBC Pending RBC Pending Hgb Pending Hct Pending MCV Pending MCH Pending MCHC Pending RDW Pending Plt Count Pending MPV Pending Assessment/Plan Assessment/Plan This 77 year old male is HD#7 with sbo, POD#15 s/p subtotal colectomy, currently tolerating low fiber diet and weaned off tpn tolerating low fiber diet, off tpn oob/ambulating hep sc - dvt ppx f/u labs d/c planning, ?today vs tomorrow will d/w Core Measures Venous Thromboembolism VTE Risk Factors Age>40 No Mechanical VTE Prophylaxis d/t N/A MechProphylax Ordered No VTE Pharm Prophylaxis d/t NA PharmProphylax ordered
--- NOTE | 2017-07-09 07:42 | Patient Discharge Instructions ---
Discharge Instructions General Discharge Information You were seen/treated for: bowel obstruction s/p subtotal colectomy You had these procedures: bowel rest, picc line (07/03/17) and tpn for nutrition Watch for these problems: fever>101.3, increased pain, redness/swelling/drainage, dizziness, shortness of breath, recurrent nausea/vomiting No bath, but you may shower: Yes Other wound care: leave white steri strips in place. they will fall off. Diet Continue normal diet: No Recommended Diet: Low Residue Activity Full Activity/No Limits: No Activity Self Limited: Yes Pounds, do NOT lift more than: 10 Other activity limits: no heavy lifting. no strenuous activity. Acute Coronary Syndrome Inclusion Criteria At DC or during hospital stay patient has or had the following: ACS DIAGNOSIS No Discharge Core Measures Meds if any: Prescribed or Continued at Discharge Meds if any: NOT Prescribed or Continued at Discharge Congestive Heart Failure Inclusion Criteria At DC or during hospital stay patient has or had the following: CHF DIAGNOSIS No Discharge Core Measures Meds if any: Prescribed or Continued at Discharge Meds if any: NOT Prescribed or Continued at Discharge Cerebrovascular accident Inclusion Criteria At DC or during hospital stay patient has or had the following: CVA/TIA Diagnosis No Discharge Core Measures Meds if any: Prescribed or Continued at Discharge Meds if any: NOT Prescribed or Continued at Discharge Venous thromboembolism Inclusion Criteria VTE Diagnosis No VTE Type NONE VTE Confirmed by (Test) NONE Discharge Core Measures - Per Current guidelines, there needs to be overlap - treatment for the first 5 days of Warfarin therapy. - If discharged on Warfarin prior to 5 days of - overlap therapy, the patient will need to be - assessed for post discharge needs including - *Post discharge parental anticoagulation - *Warfarin and/or parental anticoagulation education - *Follow up date to check INR post discharge At least 5 days overlap therapy as Inpatient No Meds if any: Prescribed or Continued at Discharge Note: Overlap Therapy is Warfarin and Anticoagulant Meds if any: NOT Prescribed or Continued at Discharge
--- NOTE | 2017-07-09 07:44 | Surgical Discharge Summary ---
Visit Information Visit Dates Admission Date: 07/01/17 Discharge Date: 07/10/17 History of Present Illness Chief Complaint: abdominal pain, sbo Medical History Blood Transfusion Hx: No Neurological: NONE EENT: NONE Cardiovascular: NONE Respiratory: COPD Gastrointestinal: GERD, 3/4 COLON REMOVED UMBILICAL HERNIA REPAIR Hepatic: NONE Renal: KIDNEY STONES Musculoskeletal: NONE Psychiatric: NONE Endocrine: NONE Blood Disorders: NONE Cancer(s): colon/rectal cancer [employer]LECT[employer]/Reproductive: NONE History of MRSA: No History of VRE: No History of CDIFF: No Isolation History: Standard Influenza Vaccine: 02/21/17 Surgical History Pertinent Surgical History: colon resection Psychosocial History Where Do You Live? Home Who Do You Live With? Spouse Services at Home: None What is Your Primary Language? [place] Citizen ETOH Use: denies use Review of Systems: see h&p Hospital Course Course Attending Physician: Eric Pete Jr., DO Primary Care Physician: Israel CLEMENT,[place] Hospital Course: Admitted on 07/01/17 for abdominal pain and bowel obstruction following his laparosopic converted to open subtotal colectomy with ileo to sigmoid colon anastomosis and splenic flexure mobilization on 06/23/17 by for history of malignant polyps of the proximal and distal transverse colon, and polyposis syndrome undefined. Conservative treatment for bowel obstruction continued through his hospitalization, with a picc line placed on 07/03/17 and tpn initiated for prolonged npo status and malnutrition. With resolution of his bowel obstruction, his diet was slowly advanced, and tpn was weaned off. He has been tolerating a low residue diet. His midline sutures from his operation were removed on 07/07/17, and steri strips were placed. Complications: None Allergies: Coded Allergies: No Known Allergies (06/20/17) NO KNOWN ALLERGIES PER ANDREW IN SDS ON 06/20/17 - [facility] Significant Procedures: picc line placed on 07/03/17 for tpn Disposition Summary Disposition Principal Diagnosis: bowel obstruction, likely involving the surgical anastomosis Additional Diagnosis: malnutrition requiring picc line and tpn until able to initiated diet Discharge Disposition: home or self care Discharge Instructions General Discharge Information Code Status: Full Code Patient's Diet: low fiber diet as tolerated Patient's Activity: no heavy lifting >10 lbs. no strenuous activity. Follow-Up Instructions/Appts: follow up with in 1-2 weeks, as directed Medications at Discharge Discharge Medications: Stop taking the following medications: Oxycodone HCl/Acetaminophen (Percocet 5-325 MG Tablet) 5 MG-325 MG TABLET ORAL EVERY 4-6 HOURS NEEDED as needed for pain control Qty = 36 Continue taking these medications: Aspirin ([place] Aspirin) 81 MG TABLET. 1 Tablet ORAL DAILY Comments: NOT GIVEN Roflumilast (Daliresp) 500 MCG TABLET 1 Tablet ORAL DAILY Comments: Last Taken:06/29/17 Time:8AM Fluticasone/Vilanterol (Breo Ellipta 200-25 Mcg INH) 200 MCG-25 MCG/DOSE BLST.W.DEV 1 Inhalation INHALATION DAILY Comments: NOT GIVEN Montelukast Sodium (Montelukast Sodium) 10 MG TABLET 1 Tablet ORAL DAILY Comments: Last Taken:06/29/17 Time:8AM Citalopram Hydrobromide (Citalopram HBr) 20 MG TABLET 1 Tablet ORAL DAILY Comments: Last Taken:06/29/17 Time:8AM Copies To: Israel CLEMENT,[place]
[2017-07-09 09:01] LABS: ABSOLUTE BASOPHIL COUNT 0.1 /CUMM (0.0-0.2); ABSOLUTE EOSINOPHIL COUNT 0.3 /CUMM (0.0-0.7); ABSOLUTE GRANULOCYTE CT 6.1 /CUMM (1.4-6.5); ABSOLUTE LYMPH COUNT 1.3 /CUMM (1.2-3.4); ABSOLUTE MONOCYTE COUNT 0.9 /CUMM (0.10-0.60); BASOPHIL % 0.7 % (0.0-2.0); EOSINOPHIL % 3.6 % (0-5); GRANULOCYTE % 70.4 % (42.2-75.2); MEAN CORPUSCULAR HGB CONC 33.2 G/DL (33.0-37.0); MEAN CORPUSCULAR VOLUME 84.3 FL (80.0-94.0); MEAN PLATELET VOLUME 7.7 FL (7.4-10.4); RBC DISTRIBUTION WIDTH 15.8 % (11.5-14.5); RED BLOOD CELL CT 3.75 /CUMM (4.70-6.10); WHITE BLOOD CELL COUNT 8.6 /CUMM (4.8-10.8)
[2017-07-09 09:13] LABS: HEMATOCRIT 31.6 % (42-52); PLATELET COUNT 406 /CUMM (130-400)
[2017-07-09 14:51] VITALS: BP 130/72
[2017-07-09 23:30] VITALS: BP 140/84
[2017-07-10 07:39] VITALS: BP 128/70
--- NOTE | 2017-07-10 07:46 | PN- General Surgery ---
Subjective Subjective: PT SITTING IN CAHIR, NO COMPLAINTS OF PAIN OR NAUSEA TOLERATING LOW RESIDUE DIET. +BM. VOIDING. AMBULATING FEELS READY TO GO HOME Objective Vital Signs and I&Os Vital Signs Date Time Temp Pulse Resp B/P B/P Pulse O2 O2 Flow FiO2 Mean Ox Delivery Rate 07/10 0739 98.6 86 16 128/70 99 Room Air 07/09 2330 97.6 74 16 140/84 97 Room Air 07/09 1451 99.1 85 16 130/72 99 Intake & Output 07/10 0800 07/10 0000 07/09 1600 07/09 0800 07/09 0000 07/08 1600 Intake Total 600 900 410 560 400 Output Total 100 Balance 600 900 410 560 300 Intake, IV 100 50 Intake, Oral 600 800 360 480 400 Intake, 80 TPN/PPN Number 1 Bowel Movements Output, Urine 100 Physical Exam: GEN- NAD RESP-CLEAR CARDIO-RRR ABD-ND, SOFT, NONTENDER. INCISION CLEAN AND DRY, NO SIGNS OF INFECTION Assessment/Plan Assessment/Plan 77YO M WITH RESOLVED SBO. SP SUBTOTAL COLECTOMY 06/23 DC TO HOME TODAY PATIENT TO SCHEDULE FOLLOW-UP APPOINTMENT WITH DR RODRIGUEZ IN 1-2 WEEKS DC PICC LINE CONT LOW FIBER DIET ENCOURAGE AMBULATION OK TO SHOWER Core Measures Venous Thromboembolism VTE Risk Factors Age>40 No Mechanical VTE Prophylaxis d/t N/A MechProphylax Ordered No VTE Pharm Prophylaxis d/t NA PharmProphylax ordered
== END 2017-07-10 11:02 | DRG 389 ==
LOC: ERH 11:50 → ERHI 17:04 → 2NA 17:04 → ENRESERV 19:57 → ENTRNSPT 20:09 → 2NA 20:32 → CMPTRNSPT 20:46 → DELTRNSPT 21:11 → 2NA 07-06 07:33 → ENPENDDIS 07-10 07:30 → ENTRNSPT 07-10 10:51 → EDTRNSPTSTS 07-10 10:57 → EDTRNSPT 07-10 10:57 → 2NA 07-10 11:02 → CMPTRNSPT 07-10 11:09
PROVIDERS: Nurse Practitioner; Physician Assistant; Physician Assistant Surgical
DX: K91.31 Postprocedural partial intestinal obstruction (principal); E87.0 Hyperosmolality and hypernatremia; E46 Unspecified protein-calorie malnutrition; E87.8 Other disorders of electrolyte and fluid balance, not elsewhere classified; J44.9 Chronic obstructive pulmonary disease, unspecified; K21.9 Gastro-esophageal reflux disease without esophagitis; Y83.9 Surgical procedure, unspecified as the cause of abnormal reaction of the patient, or of later complication, without mention of misadventure at the time of the procedure; Z68.25 Body mass index [BMI] 25.0-25.9, adult; Z90.49 Acquired absence of other specified parts of digestive tract; Z79.82 Long term (current) use of aspirin; Z79.891 Long term (current) use of opiate analgesic; Z79.51 Long term (current) use of inhaled steroids; Z85.038 Personal history of other malignant neoplasm of large intestine; W18.39XA Other fall on same level, initial encounter; Y92.002 Bathroom of unspecified non-institutional (private) residence as the place of occurrence of the external cause; Y99.9 Unspecified external cause status; E87.6 Hypokalemia; E86.0 Dehydration; S30.1XXA Contusion of abdominal wall, initial encounter
CPT/HCPCS: 2NAP; 36415; 71045; 74021; 74177; 81001; 82436; 87040; 87804; 87804-59; 93005; 93010; 96365; 96366; 99291; C1769; J0131; J1644; J2405; J7042